=== PATIENT | male | born 1950 | race Caucasian/White ===

== ENCOUNTER 2016-07-15 11:10 | Emergency (ER) | payer OTHER ==
[2016-07-15 11:20] VITALS: TEMP 97.3
--- NOTE | 2016-07-15 11:45 | CPEKG ---
Heart Rate: 68 RR Interval: 882 P-R Interval: 172 QRSD Interval: 82 QT Interval: 368 QTC Interval: 392 P [place]: 61 QRS [place]: -22 T Wave [place]: 41 EKG Severity - OTHERWISE NORMAL ECG - EKG Impression: SINUS RHYTHM EKG Impression: BORDERLINE LEFT AXIS DEVIATION Electronically Signed By: Helio Shaffer 16-Jul-2016 08:59:51
[2016-07-15] MEDS ORDERED: NS 1,000 ML IV ONE (12:02)
--- NOTE | 2016-07-15 12:06 | EDPHY ---
H & P Stated Complaint: r sided cp /sob weakness Time Seen by Provider: 07/15/16 11:53 HPI/ROS: CHIEF COMPLAINT: Lightheaded, weak, chest pain HISTORY OF PRESENT ILLNESS: The patient is a 66-year-old man with a history of multiple sclerosis, as well as a history of SVT status post ablation but no other cardiac disease. He comes to the emergency department complaining of feeling lightheaded, weak and having intermittent chest tightness on the right side of his chest over the last 4 days. He does have worsening pain with deep inspiration. He has been getting physical therapy on the right shoulder thought that maybe this was secondary to a muscle strain. He does have some leg pain and swelling at baseline but nothing unusual. Takes baclofen for pain as well as Zanaflex. He does feel slightly short of breath. REVIEW OF SYSTEMS: Constitutional: denies: chills, fever, recent illness, recent injury EENTM: denies: blurred vision, double vision, nose congestion Respiratory: See HPI Cardiac: See HPI, denies: irregular heart rate, lightheadedness, palpitations Gastrointestinal/Abdominal: denies: abdominal pain, diarrhea, nausea, vomiting, blood streaked stools Genitourinary: denies: dysuria, frequency, hematuria, pain Musculoskeletal: denies: joint pain, muscle pain Skin: denies: lesions, rash, jaundice, bruising Neurological: denies: headache, numbness, paresthesia, tingling, dizziness, weakness Hematologic/Lymphatic: denies: blood clots, easy bleeding, easy bruising Immunologic/allergic: denies: HIV/AIDS, transplant EXAM: GENERAL: lying in bed, alert, awake HEAD: Atraumatic, normocephalic. EYES: Pupils equal round and reactive to light, extraocular movements intact, sclera anicteric, conjunctiva are normal. ENT: TMs normal, nares patent, oropharynx clear without exudates. Moist mucous membranes. NECK: Normal range of motion, supple without lymphadenopathy or JVD. LUNGS: Breath sounds clear to auscultation bilaterally and equal. No wheezes rales or rhonchi. HEART: Regular rate and rhythm without murmurs, rubs or gallops. ABDOMEN: Soft, nontender, normoactive bowel sounds. No guarding, no rebound. No masses appreciated. BACK: No CVA tenderness, no spinal tenderness, step-offs or deformities EXTREMITIES: Spasticity, movement in all extremities NEUROLOGICAL: Cranial nerves II through XII grossly intact. Normal speech, normal gait. 5/5 strength, normal movement in all extremities, normal sensation PSYCH: Normal mood, normal affect. SKIN: Warm, dry, normal turgor, no visible rashes or lesions. Source: Patient Exam Limitations: No limitations - Personal History Current Tetanus/Diphtheria Vaccine: No - Medical/Surgical History Hx Asthma: No Hx Chronic Respiratory Disease: No Hx Diabetes: No Hx Cardiac Disease: No Hx Renal Disease: No Hx Cirrhosis: No Hx Alcoholism: No Hx HIV/AIDS: No Hx Splenectomy or Spleen Trauma: No Other PMH: PMH: Multiple sclerosis. lap hernia repair 1998.Lft testicle infection 1999, LYME DISEASE, ABLATION FOR SVT - Family History Significant Family History: No pertinent family hx - Social History Smoking Status: Never smoked Alcohol Use: Sober Drug Use: None Constitutional: Initial Vital Signs Temperature (C) 36.3 C 07/15/16 11:17 Heart Rate 77 07/15/16 11:17 Respiratory Rate 18 07/15/16 11:17 Blood Pressure 101/75 07/15/16 11:17 O2 Sat (%) 95 07/15/16 11:17 O2 Delivery Mode Room Air Allergies/Adverse Reactions: Sulfa (Sulfonamide Antibiotics) Allergy (Verified 07/15/16 11:16) Home Medications: Medication Instructions Recorded Amantadine HCl [Amantadine] 100 mg PO TID 06/13/14 Baclofen [Baclofen 20 mg (*)] 20 mg PO QID 06/13/14 Modafinil [Provigil 100 mg (*)] 100 mg PO DAILY@06/13/14 Modafinil [Provigil 200 mg] 200 mg PO DAILY 06/13/14 Oxybutynin Chloride Xl [Ditropan 10 mg PO DAILY 06/13/14 Xl 5mg (*)] Tizanidine HCl [Zanaflex] 4 mg PO HS 06/13/14 tiZANidine HCL [Zanaflex] 2 mg PO DAILY@06/13/14 Aspirin EC [Aspirin EC 325 mg (*)] 325 mg PO DAILY #0 tab 06/15/14 Acyclovir 07/15/16 Medical Decision Making - Diagnostics EKG Interpretation: An EKG obtained and was read and documented in trace view. Please see trace view for full reading and report. Sinus rhythm, no acute ischemic changes Imaging: X-ray: chest x-ray was obtained. I viewed the images myself on the PACS system. My interpretation of the images is: negative for acute disease . The radiologist interpretation is pending. ED Course/Re-evaluation: 12:55 p.m. the patient is feeling much better after IV hydration. He is tolerating p.o.. We will dip his urine. Otherwise his lab work is unremarkable. He is reassured by this. He suspects that this is primarily musculoskeletal discomfort and dehydration. He understands that we do not currently have a specific diagnosis. He feels comfortable going home. He declines further workup or testing. His chest discomfort has been ongoing for greater than 6 hours. 1:30 p.m. the patient's urinalysis is negative. He was able to get to his wheelchair and move around at baseline. He currently is asymptomatic and was able to leave the department in good spirits. Differential Diagnosis: Partial list of the Differential diagnosis considered include but were not limited to; chest pain, acute coronary disease, arrhythmia, pneumonia, electrolyte abnormality, dehydration, MS exacerbation and although unlikely based on the history and physical exam, I also considered head injury, sepsis. I discussed these differential diagnoses and the plan with the patient as well as the usual and expected course. The patient understands that the diagnosis is provisional and that in medicine we are not always correct and that further workup is often warranted. Usual and customary warnings were given. All of the patient's questions were answered. The patient was instructed to return to the emergency department should the symptoms at all worsen or return, otherwise to followup with the physician as we discussed. - Data Points Laboratory Results: Laboratory Results 07/15/16 11:45 07/15/16 11:45 07/15/16 07/15/16 07/15/16 11:45 11:45 11:45 WBC 5.25 10^3/uL 10^3/uL (3.80-9.50) RBC 5.32 10^6/uL 10^6/uL (4.40-6.38) Hgb 17.2 g/dL g/dL (13.7-17.5) Hct 51.3 % H % (40.0-51.0) MCV 96.4 fL fL (81.5-99.8) MCH 32.3 pg pg (27.9-34.1) MCHC 33.5 g/dL g/dL (32.4-36.7) RDW 13.4 % % (11.5-15.2) Plt Count 174 10^3/uL 10^3/uL (150-400) MPV 9.4 fL fL (8.7-11.7) Neut % (Auto) 54.9 % % (39.3-74.2) Lymph % (Auto) 26.3 % % (15.0-45.0) [place] % (Auto) 12.4 % % (4.5-13.0) Eos % (Auto) 5.0 % % (0.6-7.6) Baso % (Auto) 1.0 % % (0.3-1.7) Nucleat RBC Rel Count 0.0 % % (0.0-0.2) Absolute Neuts (auto) 2.89 10^3/uL 10^3/uL (1.70-6.50) Absolute Lymphs (auto) 1.38 10^3/uL 10^3/uL (1.00-3.00) Absolute Monos (auto) 0.65 10^3/uL 10^3/uL (0.30-0.80) Absolute Eos (auto) 0.26 10^3/uL 10^3/uL (0.03-0.40) Absolute Basos (auto) 0.05 10^3/uL 10^3/uL (0.02-0.10) Absolute Nucleated RBC 0.00 10^3/uL 10^3/uL (0-0.01) Immature Gran % 0.4 % % (0.0-1.1) Immature Gran # 0.02 10^3/uL 10^3/uL (0.00-0.10) PT 13.1 SEC SEC (12.0-15.0) INR 1.00 (0.83-1.16) APTT 26.8 SEC SEC (23.0-38.0) D-Dimer < 0.27 ug/mLFEU ug/mLFEU (0.00-0.50) Sodium 143 mEq/L mEq/L (134-144) Potassium 4.1 mEq/L mEq/L (3.5-5.2) Chloride 102 mEq/L mEq/L (97-110) Carbon Dioxide 30 mEq/l mEq/l (22-31) Anion Gap 11 mEq/L mEq/L (8-16) BUN 16 mg/dL mg/dL (7-23) Creatinine 0.7 mg/dL mg/dL (0.7-1.3) Estimated GFR > 60 Glucose 74 mg/dL mg/dL (70-100) Calcium 9.1 mg/dL mg/dL (8.5-10.4) Troponin I < 0.012 ng/mL ng/mL (0-0.034) Medications Given: Discontinued Medications Sodium Chloride (Ns) 1,000 mls @ 0 mls/hr IV ONCE ONE PRN Reason: Wide Open Stop: 07/15/16 12:03 Last Admin: 07/15/16 12:13 Dose: 1,000 mls Departure - Departure Disposition: Home, Routine, Self-Care Clinical Impression: Generalized weakness, Dehydration Condition: Fair Instructions: Dehydration (ED), Weakness (ED) Referrals: Kenyetta Garcia PA [Primary Care Provider] - As per Instructions
[2016-07-15 12:09] LABS: % IMMATURE GRANULYOCYTES 0.4 % (0.0-1.1); ABSOLUTE IMMATURE GRANULOCYTES 0.02 10^3/uL (0.00-0.10); ADD DIFF? NO; ADD MORPH? NO; ADD SCAN? NO; ATYPICAL LYMPHOCYTE FLAG 0 (0-99); FRAGMENT RBC FLAG 0 (0-99); HEMATOCRIT 51.3 % (40.0-51.0); HEMOGLOBIN 17.2 g/dL (13.7-17.5); LEFT SHIFT FLG 0 (0-99); LIPEMIA HEMOLYSIS FLAG 80 (0-99); MEAN CELL HEMOGLOBIN 32.3 pg (27.9-34.1); MEAN CELL HEMOGLOBIN CONCENTR. 33.5 g/dL (32.4-36.7); MEAN CELL VOLUME 96.4 fL (81.5-99.8); MEAN PLATELET VOLUME 9.4 fL (8.7-11.7); PLATELET CLUMPS FLAG 0 (0-99); PLATELET COUNT 174 10^3/uL (150-400); RED BLOOD CELL COUNT 5.32 10^6/uL (4.40-6.38); RED CELL DISTRIBUTION WIDTH 13.4 % (11.5-15.2)
[2016-07-15 12:21] LABS: ANION GAP 11 mEq/L (8-16); CALCIUM 9.1 mg/dL (8.5-10.4); CARBON DIOXIDE 30 mEq/l (22-31); CHLORIDE 102 mEq/L (97-110); CREATININE 0.7 mg/dL (0.7-1.3); GLOMERULAR FILTRATION RATE > 60; GLUCOSE 74 mg/dL (70-100); POTASSIUM 4.1 mEq/L (3.5-5.2); SODIUM 143 mEq/L (134-144)
[2016-07-15 12:31] LABS: TROPONIN I < 0.012 ng/mL (0-0.034)
[2016-07-15 12:34] LABS: PROTIME(PATIENT) 13.1 SEC (12.0-15.0)
[2016-07-15 12:35] LABS: APTT 26.8 SEC (23.0-38.0)
[2016-07-15 12:45] VITALS: RESP 16
[2016-07-15 13:10] VITALS: BP 132/83; PULSE 65; O2SAT 95
== END 2016-07-15 13:20 | disposition home or self-care (01) ==
DX: R53.1 Weakness (principal); E86.0 Dehydration; Z79.82 Long term (current) use of aspirin

== ENCOUNTER → 2016-08-05 | Outpatient (CLI) | payer OTHER | LOC: FIMAGING 06:54 | PROVIDERS: ATTEND Specialist | DX: G35 Multiple sclerosis (principal); M51.36 Other intervertebral disc degeneration, lumbar region ==

== ENCOUNTER → 2016-08-24 | Outpatient (CLI) | payer OTHER | LOC: FIMAGING 13:13 | PROVIDERS: ATTEND Registered Nurse | DX: R05 Cough (principal); R91.8 Other nonspecific abnormal finding of lung field; J98.6 Disorders of diaphragm; Z87.81 Personal history of (healed) traumatic fracture ==

== ENCOUNTER 2016-11-14 23:09 | Emergency (ER) | payer OTHER ==
[2016-11-15 00:42] LABS: COLOR PALE YELLOW; LEUKOCYTE ESTERASE,URINE TRACE (NEGATIVE); NITRITE,URINE NEGATIVE (NEGATIVE)
[2016-11-15 00:47] LABS: BACTERIA TRACE /hpf (NONE SEEN)
[2016-11-15 00:48] LABS: RBC,URINE NONE SEEN /hpf (0-3)
[2016-11-15] MEDS ORDERED: NITROFURANTOIN 100MG PREPACK#2 BTL TAKEHOME ONE (00:59)
--- NOTE | 2016-11-15 01:00 | EDPHY ---
H & P Stated Complaint: c/o frequency/cloudy urine today, infusion of immune suppressive med yest Time Seen by Provider: 11/15/16 00:01 HPI/ROS: Chief Complaint: Cloudy urine, possible UTI HPI: 66-year-old male with a history of MS who self caths homes presenting with concerns for possible urinary tract infection. Patient self caths in those noted cloudy urine today. Denies any fevers or chills. No nausea or vomiting. Some mild lower pelvic discomfort. Has a history of urinary tract infections in the past. ROS: 10 point Review of Systems is negative except as noted in the HPI. PMH: MS Social History: No smoking Family History: non-contributory Physical Exam: Gen: Awake, Alert, No Distress HEENT: Nose: no rhinorrhea Eyes: PERRLA, EOMI Mouth: Moist mucosa Neck: Supple, no JVD Chest: nontender, lungs clear to auscultation Heart: S1, S2 normal, no murmur Abd: Soft, non-tender, no guarding Back: no CVA tenderness, no midline tenderness Ext: no edema, non-tender Skin: no rash Neuro: CN II-XII intact, Sensation grossly intact, Strength 5/5 in bilateral upper and lower extremities - Medical/Surgical History Hx Asthma: No Hx Chronic Respiratory Disease: No Hx Diabetes: No Hx Cardiac Disease: No Hx Renal Disease: No Hx Cirrhosis: No Hx Alcoholism: No Hx HIV/AIDS: No Hx Splenectomy or Spleen Trauma: No Other PMH: PMH: Multiple sclerosis. lap hernia repair 1998.Lft testicle infection 1999, LYME DISEASE, ABLATION FOR SVT, stem cell tx - Social History Smoking Status: Never smoked Constitutional: Initial Vital Signs Temperature (C) 36.7 C 11/14/16 23:14 Heart Rate 87 11/14/16 23:14 Respiratory Rate 18 11/14/16 23:14 Blood Pressure 151/96 H 11/14/16 23:14 O2 Sat (%) 93 11/14/16 23:14 O2 Delivery Mode Room Air Allergies/Adverse Reactions: Sulfa (Sulfonamide Antibiotics) Allergy (Verified 11/14/16 23:18) Home Medications: Medication Instructions Recorded Amantadine HCl [Amantadine] 100 mg PO TID 06/13/14 Baclofen [Baclofen 20 mg (*)] 20 mg PO QID 06/13/14 Modafinil [Provigil 200 mg] 200 mg PO DAILY 06/13/14 Oxybutynin Chloride Xl [Ditropan 10 mg PO DAILY 06/13/14 Xl 5mg (*)] Tizanidine HCl [Zanaflex] 4 mg PO HS 06/13/14 tiZANidine HCL [Zanaflex] 2 mg PO DAILY@12 06/13/14 Acyclovir 07/15/16 Nitrofurantoin Monohyd/M-Cryst 100 mg PO BID #10 capsule 11/15/16 [Macrobid 100 mg Capsule] Medical Decision Making ED Course/Re-evaluation: Urinalysis consistent with UTI. I had ordered Macrobid. Urine cultures have been sent. He will follow up with culture results in 2 days with primary care physician. He will return for any concerns. - Data Points Laboratory Results: 11/15/16 00:30 Urine Color PALE YELLOW Urine Appearance CLEAR Urine pH 5.0 (5.0-7.5) Ur Specific [place] 1.006 (1.002-1.030) Urine Protein NEGATIVE (NEGATIVE) Urine Ketones NEGATIVE (NEGATIVE) Urine Blood NEGATIVE (NEGATIVE) Urine Nitrate NEGATIVE (NEGATIVE) Urine Bilirubin NEGATIVE (NEGATIVE) Urine Urobilinogen NEGATIVE EU EU (0.2-1.0) Ur Leukocyte Esterase TRACE H (NEGATIVE) Urine RBC NONE SEEN /hpf /hpf (0-3) Urine WBC 10-15 /hpf H /hpf (0-3) Ur Epithelial Cells TRACE /lpf /lpf (NONE-1+) Urine Bacteria TRACE /hpf H /hpf (NONE SEEN) Urine Glucose NEGATIVE (NEGATIVE) Medications Given: Discontinued Medications Nitrofurantoin (Macrobid 100mg Prepack#2) 1 btl TAKEHOME EDNOW ONE PRN Reason: Protocol Stop: 11/15/16 01:00 Last Admin: 11/15/16 01:09 Dose: 1 btl Departure - Departure Disposition: Home, Routine, Self-Care Clinical Impression: Urinary tract infection Condition: Good Instructions: Nitrofurantoin Combination (By mouth), Urinary Tract Infection in Men (ED) Additional Instructions: Follow up with primary care physician in 2-3 days to check your urine culture results. Return emergency depart for increasing fevers or chills, increasing pain, uncontrolled nausea vomiting, or any other concerns. Please take the full course of antibiotics. Referrals: Kenyetta Garcia PA [Primary Care Provider] - As per Instructions Prescriptions: Nitrofurantoin Monohyd/M-Cryst [Macrobid 100 mg Capsule] 100 mg PO BID #10 capsule
[2016-11-15 01:12] VITALS: BP 115/87; PULSE 81; RESP 16; TEMP 97.9; O2SAT 96
== END 2016-11-15 01:12 | disposition home or self-care (01) ==
DX: N39.0 Urinary tract infection, site not specified (principal); B96.89 Other specified bacterial agents as the cause of diseases classified elsewhere

== ENCOUNTER 2017-03-17 23:29 | Emergency (ER) | payer OTHER ==
[2017-03-17 23:38] VITALS: TEMP 98.1
[2017-03-17] MEDS ORDERED: NS 1,000 ML IV ONE (23:39)
[2017-03-17 23:47] LABS: % IMMATURE GRANULYOCYTES 0.4 % (0.0-1.1); ABSOLUTE IMMATURE GRANULOCYTES 0.05 10^3/uL (0.00-0.10); ADD DIFF? NO; ADD MORPH? NO; ADD SCAN? NO; ATYPICAL LYMPHOCYTE FLAG 0 (0-99); FRAGMENT RBC FLAG 0 (0-99); HEMATOCRIT 46.3 % (40.0-51.0); HEMOGLOBIN 16.7 g/dL (13.7-17.5); LEFT SHIFT FLG 0 (0-99); LIPEMIA HEMOLYSIS FLAG 90 (0-99); MEAN CELL HEMOGLOBIN 33.9 pg (27.9-34.1); MEAN CELL HEMOGLOBIN CONCENTR. 36.1 g/dL (32.4-36.7); MEAN CELL VOLUME 93.9 fL (81.5-99.8); MEAN PLATELET VOLUME 9.3 fL (8.7-11.7); PLATELET CLUMPS FLAG 10 (0-99); PLATELET COUNT 171 10^3/uL (150-400); RED BLOOD CELL COUNT 4.93 10^6/uL (4.40-6.38); RED CELL DISTRIBUTION WIDTH 13.7 % (11.5-15.2)
--- NOTE | 2017-03-17 23:55 | CPEKG ---
Heart Rate: 99 RR Interval: 606 P-R Interval: 168 QRSD Interval: 78 QT Interval: 324 QTC Interval: 416 P [place]: 43 QRS [place]: -23 T Wave [place]: 35 EKG Severity - OTHERWISE NORMAL ECG - EKG Impression: SINUS RHYTHM EKG Impression: BORDERLINE LEFT AXIS DEVIATION Electronically Signed By: Remedios Persaud 18-Mar-2017 06:42:22
[2017-03-18 00:04] LABS: ANION GAP 12 mEq/L (8-16); CARBON DIOXIDE 25 mEq/l (22-31); CHLORIDE 106 mEq/L (97-110); CREATININE 0.8 mg/dL (0.7-1.3); GLOMERULAR FILTRATION RATE > 60; GLUCOSE 125 mg/dL (70-100); POTASSIUM 4.1 mEq/L (3.5-5.2); SODIUM 143 mEq/L (134-144)
[2017-03-18 00:15] LABS: TROPONIN I < 0.012 ng/mL (0.000-0.034)
[2017-03-18 00:30] VITALS: RESP 16
--- NOTE | 2017-03-18 00:54 | EDPHY ---
H & P Stated Complaint: short period of sob/weakness, has since resolved Time Seen by Provider: 03/17/17 23:32 HPI/ROS: HPI The patient presents with an episode of shortness of breath and weakness which has now resolved, he is brought in by ambulance. He says today he does not think he drink enough water then went out to dinner and ate a salty meal. He was in bed and felt that he could not catch his breath and felt generally tired and diffusely weak. He noticed that he had a dry mouth. He checked his blood pressure and it was 90/50 which is low for him. He called 911. He was able to walk according to the paramedics, glucose was checked and was 137. Blood pressure improved to 136/90 when he ambulated. He has recently finished treatment for urinary tract infection. He did take a dose of ciprofloxacin today. He does self cath. He denies any chest pain, vomiting,. REVIEW OF SYSTEMS Constitutional: No fever, no chills. Eyes: No discharge. ENT: No sore throat. Cardiovascular: No chest pain, no palpitations. Respiratory: No cough, positive for shortness of breath. Gastrointestinal: No abdominal pain, no vomiting. Genitourinary: No hematuria. Musculoskeletal: No back pain. Skin: No rashes. Neurological: No headache. PMHx: Multiple sclerosis, self caths, has had a stem cell transplant Soc Hx: Lives at home with his PHYSICAL General Appearance: Alert, no distress Eyes: Pupils equal and round no pallor or injection ENT, Mouth: Mucous membranes moist Respiratory: There are no retractions, lungs are clear to auscultation Cardiovascular: Regular rate and rhythm Gastrointestinal: Abdomen is soft and non-tender, no masses, bowel sounds normal Neurological: A&O, moves all extremities Skin: Warm and dry, no rashes Musculoskeletal: Neck is supple non tender Extremities: Bilateral edema of both of his feet Psychiatric: Patient is oriented X 3, there is no agitation Source: Patient, EMS, Old records - Medical/Surgical History Hx Asthma: No Hx Chronic Respiratory Disease: No Hx Diabetes: No Hx Cardiac Disease: No Hx Renal Disease: No Hx Cirrhosis: No Hx Alcoholism: No Hx HIV/AIDS: No Hx Splenectomy or Spleen Trauma: No Other PMH: PMH: Multiple sclerosis. lap hernia repair 1998.Lft testicle infection 1999, LYME DISEASE, ABLATION FOR SVT, stem cell tx - Social History Smoking Status: Never smoked Constitutional: Initial Vital Signs Temperature (C) 36.7 C 03/17/17 23:34 Heart Rate 97 03/17/17 23:34 Respiratory Rate 22 H 03/17/17 23:34 Blood Pressure 140/86 H 03/17/17 23:34 O2 Sat (%) 94 03/17/17 23:34 O2 Delivery Mode Room Air Allergies/Adverse Reactions: Sulfa (Sulfonamide Antibiotics) Allergy (Verified 03/17/17 23:37) Home Medications: Medication Instructions Recorded Amantadine HCl [Amantadine] 100 mg PO TID 06/13/14 Baclofen [Baclofen 20 mg (*)] 20 mg PO QID 06/13/14 Modafinil [Provigil 200 mg] 200 mg PO DAILY 06/13/14 Oxybutynin Chloride Xl [Ditropan 10 mg PO DAILY 06/13/14 Xl 5mg (*)] Tizanidine HCl [Zanaflex] 4 mg PO HS 06/13/14 tiZANidine HCL [Zanaflex] 2 mg PO DAILY@12 06/13/14 Acyclovir 07/15/16 Nitrofurantoin Monohyd/M-Cryst 100 mg PO BID #10 capsule 11/15/16 [Macrobid 100 mg Capsule] Medical Decision Making - Diagnostics EKG Interpretation: EKG: Complete interpretation has been separately recorded in the [facility] archive. Summary impression: Normal sinus rhythm Imaging Results: Chest x-ray two view shows poor inspiration, no infiltrate, no pneumothorax, interpreted by me, radiology interpretation pending. Imaging: I viewed and interpreted images myself Differential Diagnosis: This is a 66-year-old man with multiple sclerosis who presents with an episode of shortness of breath and diffuse weakness which is now entirely resolved. He had hypotension with this which has also resolved with no treatments. He believes he is dehydrated. On exam, he has a normal blood pressure and is mildly tachycardic in the low 100s. He does not have any focal neurologic deficits. His lungs sound clear. Differential diagnosis includes hypovolemia, pneumonia, pneumothorax, infection such as urinary tract infection. In the emergency department, patient was given a fluid bolus with no ongoing symptoms. He continued to feel well. His blood pressures were normal. He had normal laboratory testing and normal chest x-ray. He will be discharged home. Urine culture was sent I will not presumptively start him on antibiotics at this time. - Data Points Laboratory Results: Laboratory Results 03/17/17 23:30 03/17/17 23:30 03/18/17 03/17/17 03/17/17 00:38 23:30 23:30 WBC 11.62 10^3/uL H 10^3/uL (3.80-9.50) RBC 4.93 10^6/uL 10^6/uL (4.40-6.38) Hgb 16.7 g/dL g/dL (13.7-17.5) Hct 46.3 % % (40.0-51.0) MCV 93.9 fL fL (81.5-99.8) MCH 33.9 pg pg (27.9-34.1) MCHC 36.1 g/dL g/dL (32.4-36.7) RDW 13.7 % % (11.5-15.2) Plt Count 171 10^3/uL 10^3/uL (150-400) MPV 9.3 fL fL (8.7-11.7) Neut % (Auto) 81.3 % H % (39.3-74.2) Lymph % (Auto) 9.4 % L % (15.0-45.0) [place] % (Auto) 7.1 % % (4.5-13.0) Eos % (Auto) 1.5 % % (0.6-7.6) Baso % (Auto) 0.3 % % (0.3-1.7) Nucleat RBC Rel Count 0.0 % % (0.0-0.2) Absolute Neuts (auto) 9.43 10^3/uL H 10^3/uL (1.70-6.50) Absolute Lymphs (auto) 1.09 10^3/uL 10^3/uL (1.00-3.00) Absolute Monos (auto) 0.83 10^3/uL H 10^3/uL (0.30-0.80) Absolute Eos (auto) 0.18 10^3/uL 10^3/uL (0.03-0.40) Absolute Basos (auto) 0.04 10^3/uL 10^3/uL (0.02-0.10) Absolute Nucleated RBC 0.00 10^3/uL 10^3/uL (0-0.01) Immature Gran % 0.4 % % (0.0-1.1) Immature Gran # 0.05 10^3/uL 10^3/uL (0.00-0.10) Sodium 143 mEq/L mEq/L (134-144) Potassium 4.1 mEq/L mEq/L (3.5-5.2) Chloride 106 mEq/L mEq/L (97-110) Carbon Dioxide 25 mEq/l mEq/l (22-31) Anion Gap 12 mEq/L mEq/L (8-16) BUN 15 mg/dL mg/dL (7-23) Creatinine 0.8 mg/dL mg/dL (0.7-1.3) Estimated GFR > 60 Glucose 125 mg/dL H mg/dL (70-100) Calcium 9.0 mg/dL mg/dL (8.5-10.4) Troponin I < 0.012 ng/mL ng/mL (0.000-0.034) Urine Color YELLOW Urine Appearance CLEAR Urine pH 6.0 (5.0-7.5) Ur Specific [place] 1.021 (1.002-1.030) Urine Protein NEGATIVE (NEGATIVE) Urine Ketones NEGATIVE (NEGATIVE) Urine Blood NEGATIVE (NEGATIVE) Urine Nitrate NEGATIVE (NEGATIVE) Urine Bilirubin NEGATIVE (NEGATIVE) Urine Urobilinogen NEGATIVE EU EU (0.2-1.0) Ur Leukocyte Esterase TRACE H (NEGATIVE) Urine RBC 3-5 /hpf H /hpf (0-3) Urine WBC 10-15 /hpf H /hpf (0-3) Ur Epithelial Cells TRACE /lpf /lpf (NONE-1+) Urine Mucus 1+ /lpf /lpf (NONE-1+) Urine Glucose NEGATIVE (NEGATIVE) Medications Given: Discontinued Medications Sodium Chloride (Ns) 1,000 mls @ 0 mls/hr IV ONCE ONE; Wide Open PRN Reason: Protocol Stop: 03/17/17 23:40 Last Admin: 03/17/17 23:45 Dose: 1,000 mls Departure - Departure Disposition: Home, Routine, Self-Care Clinical Impression: Weakness, Hypotension Condition: Good Instructions: Dehydration (ED) Additional Instructions: I suspect you were dehydrated tonight and that is what has caused her symptoms. I would like you to check your blood pressure more frequently tomorrow to make sure your having normal readings. I would like you to follow up with your primary care doctor in 1-2 days. We did notice a small amount of bacteria in her urine because of this we have sent a urine culture test. If this returns positive, we will call you at home. Please continue to take her ciprofloxacin. Referrals: [facility] [Provider Group] - As per Instructions
[2017-03-18 00:57] LABS: COLOR YELLOW; LEUKOCYTE ESTERASE,URINE TRACE (NEGATIVE); NITRITE,URINE NEGATIVE (NEGATIVE)
[2017-03-18 01:05] LABS: MUCUS 1+ /lpf (NONE-1+)
[2017-03-18 02:04] VITALS: BP 134/65; PULSE 89; O2SAT 95
== END 2017-03-18 02:00 | disposition home or self-care (01) ==
LOC: EDUNIT#
DX: R53.1 Weakness (principal); I95.9 Hypotension, unspecified; E86.9 Volume depletion, unspecified

== ENCOUNTER 2017-07-07 12:35 | Observation (INO) | payer OTHER ==
[2017-07-07 12:48] LABS: PLATELET COUNT 143 10^3/uL (150-400)
--- NOTE | 2017-07-07 12:49 | EDPHY ---
HPI/HX/ROS/PE/MDM Narrative: CHIEF COMPLAINT: Fever, weakness. HPI: This patient is a 67 year old male with history of multiple sclerosis presenting with fever and weakness. Yesterday, he had sudden onset high fever and wheezing with associated generalized body aches. This morning, symptoms persisted with fever of 102.1. He took Tylenol for fever reduction and Mucinex for symptom relief, and went to his primary care provider at [place]. Providers referred him to the emergency department as he appeared very weak and needed to lie down due to near-syncope. His primary care providers were concerned for UTI. He generally places a self-catheter for urination. The patient endorses nausea. No vomiting or diarrhea. He has a mild cough. No chest pain, shortness of breath, diarrhea, or other associated symptoms. Of note, the patient was recently placed on a diuretic medication for pedal edema. He did not take this medication today. REVIEW OF SYSTEMS: Aside from elements discussed in the HPI, a comprehensive 10-point review of systems was reviewed and is negative. PMH: Multiple sclerosis. Laparoscopic hernia repair. Lyme disease. SVT s/p ablation. SOCIAL HISTORY: . at bedside. Lives in [place]. Works for [employer]. PHYSICAL EXAM: General:Patient is alert, in no acute distress. ENT:Eyes are normal to inspection. ENT inspection normal. Neck: Normal inspection. Full range of motion. Respiratory:No respiratory distress. Breath sounds normal bilaterally. Cardiovascular: Regular rate and rhythm. Strong peripheral pulses. Normal cap refill. Abdomen:The abdomen is nontender to palpation. There are no peritoneal signs. There are normal bowel sounds. Back: Normal to inspection. No tenderness to palpation. Skin: Normal color. No rash. Warm and dry. Extremities: Normal appearance. Full range of motion. Neuro: Alert and oriented x3. ED Course: 67 y/o male presents with fever and weakness onset yesterday. Plan for labs including CBC, chemistries, flu swab, lactic acid, blood cultures, UA. 14:15 UA positive for UTI. WBC elevated at 16,000. Flu swab negative. Chest x-ray negative for acute processes. No evidence of pneumonia. Reassessed patient. Offered admission for MS exacerbation, UTI. Patient declines and would prefer to be discharge home on antibiotics. His , who is his primary caregiver, recently underwent back surgery and is concerned because she will not be able to lift him or provide adequate assistance. Plan to consult with case management. Case management has spoken with the patient and his . The patient is comfortable with admission for appropriate care. 14:41 Spoke with hospitalist service. Dr. Dudley accepts admission for UTI and MS exacerbation. - Data Points Imaging Results: Imaging Impressions Chest X-Ray 07/07/17 12:42 Impression: 1. No evidence of acute pneumonia 2. Lower lobe atelectasis secondary to elevated right hemidiaphragm. 3. Chronic airways disease. Superimposed infectious bronchiolitis not excluded. Imaging: I viewed and interpreted images myself Laboratory Results: Laboratory Results 07/07/17 12:40 07/07/17 12:40 07/07/17 07/07/17 07/07/17 13:35 13:09 12:41 WBC RBC Hgb Hct MCV MCH MCHC RDW Plt Count MPV Neut % (Auto) Lymph % (Auto) [place] % (Auto) Eos % (Auto) Baso % (Auto) Nucleat RBC Rel Count Absolute Neuts (auto) Absolute Lymphs (auto) Absolute Monos (auto) Absolute Eos (auto) Absolute Basos (auto) Absolute Nucleated RBC Immature Gran % Immature Gran # VBG Lactic Acid 1.4 mmol/L mmol/L (0.7-2.1) Sodium Potassium Chloride Carbon Dioxide Anion Gap BUN Creatinine Estimated GFR Glucose Calcium Urine Color YELLOW Urine Appearance HAZY Urine pH 5.0 (5.0-7.5) Ur Specific [place] 1.026 (1.002-1.030) Urine Protein 1+ H (NEGATIVE) Urine Ketones TRACE H (NEGATIVE) Urine Blood NEGATIVE (NEGATIVE) Urine Nitrate NEGATIVE (NEGATIVE) Urine Bilirubin NEGATIVE (NEGATIVE) Urine Urobilinogen 2.0 EU H EU (0.2-1.0) Ur Leukocyte Esterase NEGATIVE (NEGATIVE) Urine RBC NONE SEEN /hpf /hpf (0-3) Urine WBC 10-15 /hpf H /hpf (0-3) Ur Epithelial Cells TRACE /lpf /lpf (NONE-1+) Hyaline Casts 1-5 /lpf /lpf (0-1) Urine Mucus 2+ /lpf H /lpf (NONE-1+) Urine Glucose NEGATIVE (NEGATIVE) Nasal Influenza A PCR NEGATIVE FOR FLU A (NEGATIVE) Nasal Influenza B PCR NEGATIVE FOR FLU B (NEGATIVE) 07/07/17 07/07/17 12:40 12:40 WBC 15.88 10^3/uL H 10^3/uL (3.80-9.50) RBC 5.61 10^6/uL 10^6/uL (4.40-6.38) Hgb 18.5 g/dL H g/dL (13.7-17.5) Hct 53.5 % H % (40.0-51.0) MCV 95.4 fL fL (81.5-99.8) MCH 33.0 pg pg (27.9-34.1) MCHC 34.6 g/dL g/dL (32.4-36.7) RDW 14.3 % % (11.5-15.2) Plt Count 143 10^3/uL L 10^3/uL (150-400) MPV 9.2 fL fL (8.7-11.7) Neut % (Auto) 84.2 % H % (39.3-74.2) Lymph % (Auto) 5.4 % L % (15.0-45.0) [place] % (Auto) 9.3 % % (4.5-13.0) Eos % (Auto) 0.0 % L % (0.6-7.6) Baso % (Auto) 0.3 % % (0.3-1.7) Nucleat RBC Rel Count 0.0 % % (0.0-0.2) Absolute Neuts (auto) 13.38 10^3/uL H 10^3/uL (1.70-6.50) Absolute Lymphs (auto) 0.85 10^3/uL L 10^3/uL (1.00-3.00) Absolute Monos (auto) 1.48 10^3/uL H 10^3/uL (0.30-0.80) Absolute Eos (auto) 0.00 10^3/uL L 10^3/uL (0.03-0.40) Absolute Basos (auto) 0.04 10^3/uL 10^3/uL (0.02-0.10) Absolute Nucleated RBC 0.00 10^3/uL 10^3/uL (0-0.01) Immature Gran % 0.8 % % (0.0-1.1) Immature Gran # 0.13 10^3/uL H 10^3/uL (0.00-0.10) VBG Lactic Acid Sodium 138 mEq/L mEq/L (135-145) Potassium 4.3 mEq/L mEq/L (3.5-5.2) Chloride 102 mEq/L mEq/L (97-110) Carbon Dioxide 24 mEq/l mEq/l (22-31) Anion Gap 12 mEq/L mEq/L (8-16) BUN 17 mg/dL mg/dL (7-23) Creatinine 0.7 mg/dL mg/dL (0.7-1.3) Estimated GFR > 60 Glucose 124 mg/dL H mg/dL (70-100) Calcium 8.6 mg/dL mg/dL (8.5-10.4) Urine Color Urine Appearance Urine pH Ur Specific [place] Urine Protein Urine Ketones Urine Blood Urine Nitrate Urine Bilirubin Urine Urobilinogen Ur Leukocyte Esterase Urine RBC Urine WBC Ur Epithelial Cells Hyaline Casts Urine Mucus Urine Glucose Nasal Influenza A PCR Nasal Influenza B PCR Medications Given: Discontinued Medications Sodium Chloride (Ns) 1,000 mls @ 0 mls/hr IV ONCE ONE PRN Reason: Wide Open Stop: 07/07/17 12:55 Last Admin: 07/07/17 13:17 Dose: 1,000 mls Ceftriaxone Sodium/Dextrose (Rocephin 1 Gm (Premix)) 50 mls @ 100 mls/hr IV EDNOW ONE PRN Reason: Protocol Stop: 07/07/17 14:49 Last Admin: 07/07/17 14:23 Dose: 50 mls General Time Seen by Provider: 07/07/17 12:42 Initial Vital Signs: Initial Vital Signs Temperature (C) 37.2 C 07/07/17 12:40 Heart Rate 104 H 07/07/17 12:40 Respiratory Rate 16 07/07/17 12:40 Blood Pressure 153/100 H 07/07/17 12:40 O2 Sat (%) 90 L 07/07/17 12:40 O2 Delivery Mode Room Air Allergies/Adverse Reactions: Sulfa (Sulfonamide Antibiotics) Allergy (Verified 03/17/17 23:37) Home Medications: Medication Instructions Recorded Amantadine HCl [Amantadine] 100 mg PO TID 06/13/14 Baclofen [Baclofen 20 mg (*)] 30 mg PO QID 06/13/14 Modafinil [Provigil 200 mg] 200 mg PO DAILY 06/13/14 Oxybutynin Chloride Xl [Ditropan 10 mg PO DAILY 06/13/14 Xl 5mg (*)] Tizanidine HCl [Zanaflex] 4 mg PO HS 06/13/14 tiZANidine HCL [Zanaflex] 2 mg PO DAILY@12 06/13/14 Acyclovir [Zovirax 400 mg (*)] 400 mg PO BID 07/15/16 Albuterol [Proventil Inhaler HFA 1 - 2 puffs IH Q4H 07/07/17 (*)] Eszopiclone [Lunesta] 3 mg PO HS PRN 07/07/17 Furosemide [Lasix 40 MG (*)] 40 mg PO DAILY 07/07/17 Herbals/Supplements -Info Only 1 ea PO DAILY 07/07/17 Modafinil [Provigil] 100 mg PO DAILY@12 07/07/17 Potassium Cl [Klor-Con 20 meq (*)] 20 meq PO DAILY 07/07/17 Departure - Departure Disposition: [facility] Inpatient Acute Clinical Impression: Multiple sclerosis exacerbation UTI (urinary tract infection) Qualifiers: Urinary tract infection type: acute cystitis Hematuria presence: without hematuria Qualified Code(s): N30.00 - Acute cystitis without hematuria Condition: Fair Physician Review and Approval Statement: Portions of this note were transcribed by an ED scribe. I personally performed the history, physical exam, and medical decision making; and confirm the accuracy of the information in the transcribed note.
[2017-07-07] MEDS ORDERED: NS 1,000 ML IV ONE (12:54)
[2017-07-07] MEDS ORDERED: ALBUTEROL 3 ML DEYVIAL IH PRN (14:59)
[2017-07-07] MEDS ORDERED: OXYCODONE/APAP 5/325 TAB PO PRN (14:59)
[2017-07-07] MEDS ORDERED: ONDANSETRON 4 MG/2 ML VIAL IVP PRN (14:59)
[2017-07-07] MEDS ORDERED: ACETAMINOPHEN 325 MG TAB PO PRN (14:59)
[2017-07-07] MEDS ORDERED: ONDANSETRON DISINTEGRATING 4 MG TAB PO PRN (14:59)
[2017-07-07] MEDS ORDERED: ZOLPIDEM TARTRATE 5 MG TAB PO PRN (15:31)
[2017-07-07] MEDS: BACLOFEN 20 MG TAB PO SCH ×2 (15:55→21:29)
[2017-07-07] MEDS: AMANTADINE HCL 100 MG CAP PO SCH ×2 (15:55→21:29)
[2017-07-07] MEDS: NS 1,000 ML IV SCH (16:00)
--- NOTE | 2017-07-07 16:00 | ASMTCMCOM ---
CM Note CM Note Notes: Patient presents to ER with MS exacerbation accompanied by his . Patient reluctant for admission as he is feeling "okay" at present, but is also concerned about recurrance of symptoms. He tells me that in addition to his symptoms which brought him here today, he had a similar incident at work yesterday. He is concerned about his (recovering from recent surgery) and potential for her to hurt herself should he have more weakness, or falls at home. I spoke with patient and his re services and stressed that this was ideal for ongoing strenghthening, conditioning, but given the "acute" symptoms/exacerbation of his MS, this was unlikely to be of value without further evaluation, etc. Patient and his agree that admission at this time is preferred. CM will be available for any discharge needs/planning prn Date Signed: 07/07/2017 04:00 PM Electronically Signed By:Glenda Rawls RN
--- NOTE | 2017-07-07 16:11 | HOSPPROG ---
Hospitalist Progress Note Assessment/Plan: This is a 67 yo male with hx of MS x over a decade and Stem cell transplant w/i the last 2 years who has been having malasise, SOB, cough, weakness, and fever. He had a 102 fever yesterday. He had fever again today. He was weak. His urine was concentrated and he presented to the E.D. He denies any abd or suprapubic pain, he has not had urinary frequency, urine has not been foul smelling. His CXR does not show an infiltrate. He has leukocytosis. He denies any chest pain, focal weakness. He is weaker than usual but there it is not localized. PMHx: Asthma MS PSHx: Stem cell transplant Soc: live with FmHx: non contributory Objective: Vital Signs Temp Pulse Resp BP Pulse Ox 37.2 C 104 H 18 146/86 H 91 L 07/07/17 15:39 07/07/17 15:39 07/07/17 15:39 07/07/17 15:39 07/07/17 15:39 07/06/17 07/07/17 07/08/17 05:59 05:59 05:59 Intake Total 1000 Balance 1000 ICD10 Worksheet Patient Problems: Problems Problem Status Onset Multiple sclerosis exacerbation Acute UTI (urinary tract infection) Acute
--- NOTE | 2017-07-07 16:15 | PDGENHP ---
History and Physical - Chief Complaint fever - History of Present Illness This is a 67 yo male with hx of MS x over a decade and Stem cell transplant w/i the last 2 years who has been having malasise, SOB, cough, weakness, and fever. He had a 102 fever yesterday. He had fever again today. He was weak. His urine was concentrated and he presented to the E.D. He denies any abd or suprapubic pain, he has not had urinary frequency, urine has not been foul smelling. His CXR does not show an infiltrate. He has leukocytosis. He denies any chest pain, focal weakness. He is weaker than usual but there it is not localized. PMHx: Asthma MS PSHx: Stem cell transplant Soc: live with FmHx: non contributory History Information - Allergies/Home Medication List Allergies/Adverse Reactions: Sulfa (Sulfonamide Antibiotics) Allergy (Verified 03/17/17 23:37) Home Medications: Amantadine HCl [Amantadine] 100 mg PO TID 06/13/14 [Last Taken 07/07/17 09:00] Baclofen [Baclofen 20 mg (*)] 30 mg PO QID 06/13/14 [Last Taken 07/07/17 12:00] Modafinil [Provigil 200 mg] 200 mg PO DAILY 06/13/14 [Last Taken 07/07/17] Oxybutynin Chloride Xl [Ditropan Xl 5mg (*)] 10 mg PO DAILY 06/13/14 [Last Taken 07/07/17] Tizanidine HCl [Zanaflex] 4 mg PO HS 06/13/14 [Last Taken 07/06/17] tiZANidine HCL [Zanaflex] 2 mg PO DAILY@12 06/13/14 [Last Taken 07/06/17] Acyclovir [Zovirax 400 mg (*)] 400 mg PO BID 07/15/16 [Last Taken 07/07/17 09:00 ] Albuterol [Proventil Inhaler HFA (*)] 1 - 2 puffs IH Q4H 07/07/17 [Last Taken ] Eszopiclone [Lunesta] 3 mg PO HS PRN 07/07/17 [Last Taken 07/05/17] Furosemide [Lasix 40 MG (*)] 40 mg PO DAILY 07/07/17 [Last Taken 07/06/17] Herbals/Supplements -Info Only 1 ea PO DAILY 07/07/17 [Last Taken 07/07/17] Modafinil [Provigil] 100 mg PO DAILY@12 07/07/17 [Last Taken 07/06/17] Potassium Cl [Klor-Con 20 meq (*)] 20 meq PO DAILY 07/07/17 [Last Taken 07/06/17 ] I have personally reviewed and updated: medical history, social history - Social History Smoking Status: Never smoked Review of Systems Review of Systems: ROS: 10pt was reviewed & negative except for what was stated in HPI & below Physical Exam Physical Exam: Temp Pulse Resp BP Pulse Ox 37.2 C 104 H 18 146/86 H 91 L 07/07/17 15:39 07/07/17 15:39 07/07/17 15:39 07/07/17 15:39 07/07/17 15:39 Constitutional: no apparent distress, not in pain Eyes: PERRL, EOMI Ears, Nose, Mouth, Throat: dry mucous membranes Cardiovascular: regular rate and rhythym, edema (trace lower extremity) Respiratory: no respiratory distress, no rales or rhonchi, expiratory wheeze Gastrointestinal: normoactive bowel sounds, soft, non-tender abdomen Genitourinary: no bladder fullness Skin: warm Musculoskeletal: generalized weakness Neurologic: AAOx3 Psychiatric: interacting appropriately, not anxious, not encephalopathic Lymph, Heme, Immunologic: No petechiae Lab Data & Imaging Review 07/07/17 12:40 07/07/17 12:40 WBC 15.88 10^3/uL (3.80-9.50) H 07/07/17 12:40 RBC 5.61 10^6/uL (4.40-6.38) 07/07/17 12:40 Hgb 18.5 g/dL (13.7-17.5) H 07/07/17 12:40 Hct 53.5 % (40.0-51.0) H 07/07/17 12:40 MCV 95.4 fL (81.5-99.8) 07/07/17 12:40 MCH 33.0 pg (27.9-34.1) 07/07/17 12:40 MCHC 34.6 g/dL (32.4-36.7) 07/07/17 12:40 RDW 14.3 % (11.5-15.2) 07/07/17 12:40 Plt Count 143 10^3/uL (150-400) L 07/07/17 12:40 MPV 9.2 fL (8.7-11.7) 07/07/17 12:40 Neut % (Auto) 84.2 % (39.3-74.2) H 07/07/17 12:40 Lymph % (Auto) 5.4 % (15.0-45.0) L 07/07/17 12:40 [place] % (Auto) 9.3 % (4.5-13.0) 07/07/17 12:40 Eos % (Auto) 0.0 % (0.6-7.6) L 07/07/17 12:40 Baso % (Auto) 0.3 % (0.3-1.7) 07/07/17 12:40 Nucleat RBC Rel Count 0.0 % (0.0-0.2) 07/07/17 12:40 Absolute Neuts (auto) 13.38 10^3/uL (1.70-6.50) H 07/07/17 12:40 Absolute Lymphs (auto) 0.85 10^3/uL (1.00-3.00) L 07/07/17 12:40 Absolute Monos (auto) 1.48 10^3/uL (0.30-0.80) H 07/07/17 12:40 Absolute Eos (auto) 0.00 10^3/uL (0.03-0.40) L 07/07/17 12:40 Absolute Basos (auto) 0.04 10^3/uL (0.02-0.10) 07/07/17 12:40 Absolute Nucleated RBC 0.00 10^3/uL (0-0.01) 07/07/17 12:40 Immature Gran % 0.8 % (0.0-1.1) 07/07/17 12:40 Immature Gran # 0.13 10^3/uL (0.00-0.10) H 07/07/17 12:40 VBG Lactic Acid 1.4 mmol/L (0.7-2.1) 07/07/17 13:09 Sodium 138 mEq/L (135-145) 07/07/17 12:40 Potassium 4.3 mEq/L (3.5-5.2) 07/07/17 12:40 Chloride 102 mEq/L (97-110) 07/07/17 12:40 Carbon Dioxide 24 mEq/l (22-31) 07/07/17 12:40 Anion Gap 12 mEq/L (8-16) 07/07/17 12:40 BUN 17 mg/dL (7-23) 07/07/17 12:40 Creatinine 0.7 mg/dL (0.7-1.3) 07/07/17 12:40 Estimated GFR > 60 07/07/17 12:40 Glucose 124 mg/dL (70-100) H 07/07/17 12:40 Calcium 8.6 mg/dL (8.5-10.4) 07/07/17 12:40 Total Bilirubin 1.5 mg/dL (0.1-1.4) H 07/07/17 13:09 Conjugated Bilirubin 0.5 mg/dL (0.0-0.5) 07/07/17 13:09 Unconjugated Bilirubin 1.0 mg/dL (0.0-1.1) 07/07/17 13:09 AST 27 IU/L (17-59) 07/07/17 13:09 ALT 32 IU/L (21-72) 07/07/17 13:09 Alkaline Phosphatase 79 IU/L (38-126) 07/07/17 13:09 Total Protein 6.9 g/dL (6.3-8.2) 07/07/17 13:09 Albumin 4.3 g/dL (3.5-5.0) 07/07/17 13:09 Urine Color YELLOW 07/07/17 13:35 Urine Appearance HAZY 07/07/17 13:35 Urine pH 5.0 (5.0-7.5) 07/07/17 13:35 Ur Specific [place] 1.026 (1.002-1.030) 07/07/17 13:35 Urine Protein 1+ (NEGATIVE) H 07/07/17 13:35 Urine Ketones TRACE (NEGATIVE) H 07/07/17 13:35 Urine Blood NEGATIVE (NEGATIVE) 07/07/17 13:35 Urine Nitrate NEGATIVE (NEGATIVE) 07/07/17 13:35 Urine Bilirubin NEGATIVE (NEGATIVE) 07/07/17 13:35 Urine Urobilinogen 2.0 EU (0.2-1.0) H 07/07/17 13:35 Ur Leukocyte Esterase NEGATIVE (NEGATIVE) 07/07/17 13:35 Urine RBC NONE SEEN /hpf (0-3) 07/07/17 13:35 Urine WBC 10-15 /hpf (0-3) H 07/07/17 13:35 Ur Epithelial Cells TRACE /lpf (NONE-1+) 07/07/17 13:35 Hyaline Casts 1-5 /lpf (0-1) 07/07/17 13:35 Urine Mucus 2+ /lpf (NONE-1+) H 07/07/17 13:35 Urine Glucose NEGATIVE (NEGATIVE) 07/07/17 13:35 Nasal Influenza A PCR NEGATIVE FOR FLU A (NEGATIVE) 07/07/17 12:41 Nasal Influenza B PCR NEGATIVE FOR FLU B (NEGATIVE) 07/07/17 12:41 Assessment & Plan Assessment: #Acute Bronchitis #Fever #Dehydration #Leukocytosis #Generalized weakness #MS Plan: I do not see any e/o of UTI He was already given Rocephin. I will change to Azithromycin Start Prednisone Provide additional IVF Hold Lasix Schedule and PRN nebs PT/OT Check Resp Panel for etiology He does have generalized weakness worse than baseline but I expect this will improve with IVF and treatment of bronchitis. I will hold off on high dose steroids.
[2017-07-07] MEDS: predniSONE 20 MG TAB PO SCH (17:46)
[2017-07-07] MEDS: AZITHROMYCIN 250 MG TAB PO SCH (17:46)
[2017-07-07] MEDS: ALBUTEROL 3 ML DEYVIAL IH SCH (20:14)
[2017-07-07] MEDS: ACYCLOVIR 400 MG TAB PO SCH (21:29)
[2017-07-08 05:00] LABS: PLATELET COUNT 133 10^3/uL (150-400)
[2017-07-08] MEDS: NS 1,000 ML IV SCH (05:18)
[2017-07-08] MEDS: BACLOFEN 20 MG TAB PO SCH ×2 (05:18→13:15)
[2017-07-08] MEDS: ALBUTEROL 3 ML DEYVIAL IH SCH ×2 (05:21→12:02)
[2017-07-08] MEDS ORDERED: ENOXAPARIN 40 MG/0.4 ML SYR SC SCH (09:00)
[2017-07-08] MEDS ORDERED: MODAFINIL 100 MG TAB PO SCH ×2 (09:00→12:00)
[2017-07-08] MEDS ORDERED: OXYBUTYNIN 5 MG EXT REL TAB PO SCH (09:00)
--- NOTE | 2017-07-08 09:04 | HOSPPROG ---
Hospitalist Progress Note Assessment/Plan: This is a 67 yo male with hx of MS x over a decade and Stem cell transplant w/i the last 2 years who has been having malaise, SOB, cough, weakness, and fever. He had a 102 fever yesterday. He had fever again today. He was weak. His urine was concentrated and he presented to the E.D. He denies any abd or suprapubic pain, he has not had urinary frequency, urine has not been foul smelling. *hypotension -better now *tachycardia -resolved * bronchitis -started on azithromycin and prednisone -check for the influenza which is negative -procalcitonin is 0.25 -no infiltrate noted on chest xray -prelim blood cx shows no growth -no fevers *acute hypoxemia -resolved *dehydration -explained to the patient and his when he has a low blood pressure and is dehydrated not to take the lasix *leukocytosis *MS -patient self caths multiple times daily *general weakness -reviewed his care w PT and he is at his baselin Subjective: Patient feels well today, says he is back to his baseline. Objective: Vital Signs Temp Pulse Resp BP Pulse Ox 36.5 C 88 18 105/62 97 07/08/17 08:00 07/08/17 08:00 07/08/17 08:00 07/08/17 08:00 07/08/17 08:00 Laboratory Results 07/08/17 04:41 07/08/17 04:41 07/07/17 07/08/17 07/09/17 05:59 05:59 05:59 Intake Total 2250 Output Total 700 Balance 1550 - Physical Exam Constitutional: no apparent distress, appears nourished Eyes: PERRL Ears, Nose, Mouth, Throat: hearing normal Cardiovascular: regular rate and rhythym, edema (bilateral lower extremity) Respiratory: no respiratory distress, no rales or rhonchi Skin: warm Musculoskeletal: generalized weakness Neurologic: AAOx3 Psychiatric: interacting appropriately ICD10 Worksheet Patient Problems: Problems Problem Status Onset Multiple sclerosis exacerbation Acute UTI (urinary tract infection) Acute
[2017-07-08] MEDS: predniSONE 20 MG TAB PO SCH (10:33)
[2017-07-08] MEDS: AZITHROMYCIN 250 MG TAB PO SCH (10:34)
[2017-07-08] MEDS: ACYCLOVIR 400 MG TAB PO SCH (10:34)
[2017-07-08] MEDS: AMANTADINE HCL 100 MG CAP PO SCH (10:41)
--- NOTE | 2017-07-08 11:04 | PDIAF ---
- Diagnosis Diagnosis: bronchitis, hypotension, dehydration Code Status: Full Code - Medication Management Discharge Medications: Medications to Continue on Transfer Amantadine HCl [Amantadine] 100 mg PO TID 06/13/14 [Last Taken 07/07/17 09:00] Baclofen [Baclofen 20 mg (*)] 30 mg PO QID 06/13/14 [Last Taken 07/07/17 12:00] Modafinil [Provigil 200 mg] 200 mg PO DAILY 06/13/14 [Last Taken 07/07/17] Oxybutynin Chloride Xl [Ditropan Xl 5mg (*)] 10 mg PO DAILY 06/13/14 [Last Taken 07/07/17] Tizanidine HCl [Zanaflex] 4 mg PO HS 06/13/14 [Last Taken 07/06/17] tiZANidine HCL [Zanaflex] 2 mg PO DAILY@12 06/13/14 [Last Taken 07/06/17] Acyclovir [Zovirax 400 mg (*)] 400 mg PO BID 07/15/16 [Last Taken 07/07/17 09:00 ] Albuterol [Proventil Inhaler HFA (*)] 1 - 2 puffs IH Q4H 07/07/17 [Last Taken ] Eszopiclone [Lunesta] 3 mg PO HS PRN 07/07/17 [Last Taken 07/05/17] Furosemide [Lasix 40 MG (*)] 40 mg PO DAILY 07/07/17 [Last Taken 07/06/17] Herbals/Supplements -Info Only 1 ea PO DAILY 07/07/17 [Last Taken 07/07/17] Modafinil [Provigil] 100 mg PO DAILY@12 07/07/17 [Last Taken 07/06/17] Potassium Cl [Klor-Con 20 meq (*)] 20 meq PO DAILY 07/07/17 [Last Taken 07/06/17 ] Azithromycin [Zithromax] 500 mg PO DAILY #6 tab 07/08/17 [Last Taken Unknown] predniSONE 40 mg PO DAILY #10 tablet 07/08/17 [Last Taken Unknown] Discharge Medications: Refer to the Discharge Home Medication list for PRN reason. PICC Care - Routine: N/A - Orders Services needed: Home Care, Registered Nurse Home Care Face to Face: I certify that this patient was under my care and that I had the required [id number] encounter meeting the encounter requirements on the discharge day. My findings support the fact that the patient is homebound as defined in Home Care Face to Face Continued: CMS Chapter 7 Medicare Benefits Manual 30.1.1 , The condition of the patient is such that there exists a normal inability to leave home and consequently, leaving home would require a considerable and taxing effort. Diet Recommendation: no restrictions on diet Diet Texture: Regular Texture Diet Additional: check patient's blood pressure when home care visits. Recommending he hold his lasix if systolic is <110. - Follow Up Care Current Providers and Referrals: Kenyetta Garcia PA [Primary Care Provider] - As per Instructions
[2017-07-08 11:13] VITALS: BP 139/85
--- NOTE | 2017-07-08 11:27 | GDS ---
[f rep st] DISCHARGE SUMMARY DISCHARGE DIAGNOSIS: 1. Bronchitis. 2. Hypotension. 3. Tachycardia. 4. Acute hypoxemia. 5. Dehydration. 6. Leukocytosis. 7. Multiple sclerosis. 8. General weakness. HISTORY: Briefly, Mr. Marques is a 67-year-old male with history of MS over a decade and stem cell transplant within the last 2 years. He presented to the emergency room after having malaise, shortness of breath, cough, weakness and fever. He knows that he had 102 fever. His urine was concentrated. He denied any abdominal suprapubic pain. He was admitted. He had a procalcitonin checked which was 0.25. In addition, a chest x-ray did not show any infiltrate. Preliminary blood culture showed no growth. He is feeling markedly better. Has had no fevers while on the floor and is anxious to go home. HOSPITAL COURSE: 1. Bronchitis. He started treatment with azithromycin and will continue this, and prednisone. Will have him follow up with his primary care provider to make sure his blood cultures do not grow anything in the setting of a fever. 2. Hypotension, resolved. 3. Tachycardia, resolved. 4. Acute hypoxemia, resolved on room air at 94%. 5. Dehydration. He takes his Lasix daily due to lower extremity swelling. Explained to him if his blood pressure is lower or he is not eating or drinking well, to hold the Lasix. 6. Leukocytosis, better. 7. Multiple sclerosis, sees a doctor down in the [place] area. 8. General weakness. Reviewed his care with Physical Therapy and he is at his baseline. PENDING LABS: Final blood culture is pending and respiratory panel from last night is pending. DISCHARGE CONDITION: Stable. Blood pressure is 105/62, heart rate is 88, respiratory rate is 18, O2 saturation on room air are 96%, temperature is 36.5 Celsius. MEDICATIONS AT DISCHARGE: Please see the EMR. DISCHARGE INSTRUCTIONS: 1. To return to the ER if he develops any fever, chills, or shortness of breath. 2. His primary care provider to follow up with his respiratory panel and blood culture. /[id number]/MODL MTDD
--- NOTE | 2017-07-08 11:40 | ASMTCMCOM ---
CM Note CM Note Notes: Spoke w/[employer], would like pt to get home health RN to check BP and review of medications. Discussed with pt, gave homecare list, would like referral sent to [facility]. CM spoke with Sonia, no staff for homecare right now, will fax referrals to other agencies. DC Plan: Home Care/ RN Date Signed: 07/08/2017 11:39 AM Electronically Signed By:Ember Hagan RN
--- NOTE | 2017-07-08 12:23 | ASMTLACE ---
LACE Length of stay for Answers: 1 day current admission Acuity / Level of Answers: No Care: Did the patient have an inpatient admission? Comorbidities - select Answers: Other Notes: MS exacerbation all that apply # of Emergency department Answers: 1-2 visits in the last 6 months Score: 3 Date Signed: 07/08/2017 12:22 PM Electronically Signed By:Ember Hagan RN
== END 2017-07-08 13:49 | disposition home health service (06) ==
LOC: EDUNIT# → F3E 15:25
PROVIDERS: ADMIT Family Medicine; ATTEND Internal Medicine
DX: J20.9 Acute bronchitis, unspecified (principal); I95.9 Hypotension, unspecified; R00.0 Tachycardia, unspecified; E86.0 Dehydration; R09.02 Hypoxemia; D72.829 Elevated white blood cell count, unspecified; G35 Multiple sclerosis; R53.1 Weakness; J98.11 Atelectasis; Z94.84 Stem cells transplant status; Z88.2 Allergy status to sulfonamides
CPT/HCPCS: 71046; 96374; 97162; 97165; 99285; G0378; G8987; G8988; G8989; J0696; J1650; J7512; J7613

== ENCOUNTER 2017-07-11 00:38 | Emergency (ER) | payer OTHER ==
[2017-07-11 01:00] VITALS: RESP 16; TEMP 98.4
[2017-07-11] MEDS ORDERED: NS 1,000 ML IV ONE (01:00)
--- NOTE | 2017-07-11 01:05 | EDPHY ---
H & P Stated Complaint: General Time Seen by Provider: 07/11/17 00:42 HPI/ROS: HPI The patient presents with cramping which she is experiencing in his arms, legs, abdomen which began at about 5 or 6:00 p.m. Tonight after taking a dose of Lasix. He has been off of his Lasix which she takes for lower extremity edema for the last several days. He was just hospitalized a few days ago and this medication was taken out because of some hypotension he was experiencing. He is currently taking antibiotics and prednisone for presumed bronchitis. Today a home health care nurse came to his house and saw his lower extremity edema and encouraged him to take a dose of Lasix. Shortly after taking it he began to feel this cramping which is constant and achy throughout his body. This was also associated with tachycardia and elevated blood pressures. He says he is feeling quite anxious.. REVIEW OF SYSTEMS Constitutional: No fever, no chills. Eyes: No discharge. ENT: No sore throat. Cardiovascular: No chest pain, no palpitations. Respiratory: No cough, no shortness of breath. Gastrointestinal: No abdominal pain, no vomiting. Genitourinary: No hematuria. Musculoskeletal: No back pain. Skin: No rashes. Neurological: No headache. PMHx: Recent hospitalization from July 07 to July 09 for bronchitis, history of multiple sclerosis, history of SVT status post ablation Soc Hx: Housed with his PHYSICAL General Appearance: Alert, no distress Eyes: Pupils equal and round no pallor or injection ENT, Mouth: Mucous membranes moist Respiratory: There are no retractions, lungs are clear to auscultation Cardiovascular: Tachycardic rate and regular rhythm Gastrointestinal: Abdomen is soft and non-tender, no masses, bowel sounds normal Neurological: A&O, moves all extremities Skin: Warm and dry, no rashes Musculoskeletal: Neck is supple non tender Extremities: Lower extremities are contracted, there is 2+ edema on the dorsum of both of his feet Psychiatric: Patient is oriented X 3, there is no agitation Source: Patient Exam Limitations: No limitations - Personal History Current Tetanus/Diphtheria Vaccine: Yes - Medical/Surgical History Hx Asthma: No Hx Chronic Respiratory Disease: No Hx Diabetes: No Hx Cardiac Disease: No Hx Renal Disease: No Hx Cirrhosis: No Hx Alcoholism: No Hx HIV/AIDS: No Hx Splenectomy or Spleen Trauma: No Other PMH: PMH: Multiple sclerosis. lap hernia repair 1998.Lft testicle infection 1999, LYME DISEASE, ABLATION FOR SVT, stem cell tx - Social History Smoking Status: Never smoked Constitutional: Initial Vital Signs Temperature (C) 36.9 C 07/11/17 00:56 Heart Rate 123 H 07/11/17 00:56 Respiratory Rate 16 07/11/17 00:56 Blood Pressure 159/114 H 07/11/17 00:56 O2 Sat (%) 92 07/11/17 00:56 O2 Delivery Mode Room Air Allergies/Adverse Reactions: Sulfa (Sulfonamide Antibiotics) Allergy (Verified 07/11/17 01:02) Home Medications: Medication Instructions Recorded Amantadine HCl [Amantadine] 100 mg PO TID 06/13/14 Baclofen [Baclofen 20 mg (*)] 30 mg PO QID 06/13/14 Modafinil [Provigil 200 mg] 200 mg PO DAILY 06/13/14 Oxybutynin Chloride Xl [Ditropan 10 mg PO DAILY 06/13/14 Xl 5mg (*)] Tizanidine HCl [Zanaflex] 4 mg PO HS 06/13/14 tiZANidine HCL [Zanaflex] 2 mg PO DAILY@12 06/13/14 Acyclovir [Zovirax 400 mg (*)] 400 mg PO BID 07/15/16 Albuterol [Proventil Inhaler HFA 1 - 2 puffs IH Q4H 07/07/17 (*)] Eszopiclone [Lunesta] 3 mg PO HS PRN 07/07/17 Furosemide [Lasix 40 MG (*)] 40 mg PO DAILY 07/07/17 Herbals/Supplements -Info Only 1 ea PO DAILY 07/07/17 Modafinil [Provigil] 100 mg PO DAILY@12 07/07/17 Potassium Cl [Klor-Con 20 meq (*)] 20 meq PO DAILY 07/07/17 Azithromycin [Zithromax] 500 mg PO DAILY #6 tab 07/08/17 predniSONE 40 mg PO DAILY #10 tablet 07/08/17 Medical Decision Making - Diagnostics EKG Interpretation: EKG: Complete interpretation has been separately recorded in the [employer] archive. Summary impression: Sinus tachycardia Differential Diagnosis: This is a 67-year-old male with history of multiple sclerosis, lower extremity edema, recent admission for bronchitis now on prednisone and antibiotics who presents from home with palpitations, body cramping in the setting of taking a dose of Lasix which she has been off of for the last several days. Differential diagnosis includes dehydration, electrolyte disturbance, atrial fibrillation. In the emergency department, patient was given IV fluid with improvement in his tachycardia and symptoms in general. Labs were checked and did demonstrate normal electrolytes though elevated BUN to suggest dehydration. EKG showed a normal sinus tachycardia. He felt well enough to go home after about 2 hr here. He was able to drink fluids and his symptoms had resolved. I have advised him to hold his Lasix for the next several days and then follow up with his regular doctor. He is happy with this plan and was discharged with his . - Data Points Laboratory Results: Laboratory Results 07/11/17 01:22 07/11/17 01:22 07/11/17 07/11/17 01:22 01:22 WBC 9.44 10^3/uL 10^3/uL (3.80-9.50) RBC 5.57 10^6/uL 10^6/uL (4.40-6.38) Hgb 18.0 g/dL H g/dL (13.7-17.5) Hct 51.6 % H % (40.0-51.0) MCV 92.6 fL fL (81.5-99.8) MCH 32.3 pg pg (27.9-34.1) MCHC 34.9 g/dL g/dL (32.4-36.7) RDW 13.7 % % (11.5-15.2) Plt Count 256 10^3/uL D 10^3/uL (150-400) MPV 8.7 fL fL (8.7-11.7) Neut % (Auto) 74.6 % H % (39.3-74.2) Lymph % (Auto) 12.7 % L % (15.0-45.0) [place] % (Auto) 11.8 % % (4.5-13.0) Eos % (Auto) 0.4 % L % (0.6-7.6) Baso % (Auto) 0.2 % L % (0.3-1.7) Nucleat RBC Rel Count 0.0 % % (0.0-0.2) Absolute Neuts (auto) 7.04 10^3/uL H 10^3/uL (1.70-6.50) Absolute Lymphs (auto) 1.20 10^3/uL 10^3/uL (1.00-3.00) Absolute Monos (auto) 1.11 10^3/uL H 10^3/uL (0.30-0.80) Absolute Eos (auto) 0.04 10^3/uL 10^3/uL (0.03-0.40) Absolute Basos (auto) 0.02 10^3/uL 10^3/uL (0.02-0.10) Absolute Nucleated RBC 0.00 10^3/uL 10^3/uL (0-0.01) Immature Gran % 0.3 % % (0.0-1.1) Immature Gran # 0.03 10^3/uL 10^3/uL (0.00-0.10) Sodium 143 mEq/L mEq/L (135-145) Potassium 4.8 mEq/L mEq/L (3.5-5.2) Chloride 107 mEq/L mEq/L (97-110) Carbon Dioxide 22 mEq/l mEq/l (22-31) Anion Gap 14 mEq/L mEq/L (8-16) BUN 25 mg/dL H mg/dL (7-23) Creatinine 0.9 mg/dL mg/dL (0.7-1.3) Estimated GFR > 60 Glucose 111 mg/dL H mg/dL (70-100) Calcium 9.7 mg/dL D mg/dL (8.5-10.4) Total Bilirubin 0.7 mg/dL mg/dL (0.1-1.4) AST 37 IU/L IU/L (17-59) ALT 60 IU/L IU/L (21-72) Alkaline Phosphatase 79 IU/L IU/L (38-126) Total Protein 7.3 g/dL g/dL (6.3-8.2) Albumin 4.6 g/dL g/dL (3.5-5.0) Medications Given: Discontinued Medications Sodium Chloride (Ns) 1,000 mls @ 0 mls/hr IV EDNOW ONE; Wide Open PRN Reason: Protocol Stop: 04/01/18 01:01 Last Admin: 07/11/17 01:23 Dose: 1,000 mls Sodium Chloride (Ns) 500 mls @ 1,000 mls/hr IV EDNOW ONE PRN Reason: Protocol Stop: 07/11/17 02:53 Last Admin: 07/11/17 02:29 Dose: 500 mls Departure - Departure Disposition: Home, Routine, Self-Care Clinical Impression: Dehydration, Tachycardia Condition: Good Instructions: Dehydration (ED) Additional Instructions: Your blood test today showed that you were dehydrated, I suspect this is due in part to the Lasix you took earlier tonight. Please make sure to drink plenty of fluids over the next 24 hr. You should return to the emergency department if your worse in any way. Referrals: Kenyetta Garcia PA [Primary Care Provider] - As per Instructions
--- NOTE | 2017-07-11 01:19 | CPEKG ---
Heart Rate: 121 RR Interval: 496 P-R Interval: 156 QRSD Interval: 82 QT Interval: 296 QTC Interval: 420 P Narvon: 36 QRS Narvon: -23 T Wave Narvon: 40 EKG Severity - BORDERLINE ECG - EKG Impression: SINUS TACHYCARDIA EKG Impression: PROBABLE LEFT ATRIAL ABNORMALITY EKG Impression: BORDERLINE LEFT AXIS DEVIATION Electronically Signed By: Remedios Persaud 11-Jul-2017 05:59:43
[2017-07-11 01:35] VITALS: BP 140/92
[2017-07-11 01:51] LABS: PLATELET COUNT 256 10^3/uL (150-400)
[2017-07-11] MEDS ORDERED: NS 500 ML IV ONE (02:24)
[2017-07-11 02:51] VITALS: PULSE 103; O2SAT 94
== END 2017-07-11 03:38 | disposition home or self-care (01) ==
DX: R00.0 Tachycardia, unspecified (principal); E86.0 Dehydration; E86.9 Volume depletion, unspecified

== ENCOUNTER 2017-07-13 18:13 | Inpatient (IN) | payer OTHER ==
--- NOTE | 2017-07-13 18:11 | EDPHY ---
H & P Time Seen by Provider: 07/13/17 18:13 HPI/ROS: CHIEF COMPLAINT: Fever HISTORY OF PRESENT ILLNESS: Recent admission for UTI. Had positive urine culture was started on amoxicillin by [facility] primary care today. Presents with fever, and increasing weakness. Recent admission discharge 2017 for bronchitis and hypoxemia. Today is a fever. Feels worse. Increased weakness. Decreased ability to self cath. REVIEW OF SYSTEMS: Eye: no change in vision ENT: no sore throat Cardiac: no chest pain or syncope Pulmonary: Slightly increased cough, not short of breath Abdomen: no vomiting, diarrhea, abdominal pain Musculoskeletal: no back pain Skin: Slight redness of lower extremities Neuro: Mild headache Constitutional: Fever and chills : Usually can self cath but today has difficulty A comprehensive 10 point review of systems is otherwise negative aside from elements mentioned in the history of present illness. PAST MEDICAL HISTORY: Multiple sclerosis. Social history: Nonsmoker General Appearance: Alert and conversant, cooperative. Eyes: No scleral icterus. ENT, Mouth: Dry mucous membranes. Respiratory: Normal respiratory effort, breath sounds equal, lungs are clear to auscultation. No wheezing. Cardiovascular: Regular rate and rhythm. Gastrointestinal: Abdomen is soft and non tender. Neurological: Alert, able to follow commands with upper extremities, does not move lower extremities. Skin: Patient has a little bit of mottling of his lower extremities but he is not diaphoretic. Has some evidence of redness on his sacrum but no cellulitis or open ulcer. Musculoskeletal: No peripheral edema. Psychiatric: Not agitated. Emergency Department course/MDM: Patient is febrile. Plan for urine culture, blood cultures, chest x-ray and urinalysis and labs. Lactate screening for sepsis. IV fluids. Tylenol for fever. 2014: UA negative, chest x-ray shows bibasilar opacities per radiologist, mildly hypoxemic with 90% room air saturation, does have a cough. Plan to treat for pneumonia, respiratory panel, IV antibiotics. This would be the most likely source of his fever and leukocytosis at this time. Normal saline 2 L IV bolus, supplemental oxygen, cefepime 2 g IV with recent hospitalization. Cultures pending. Sepsis but not severe sepsis or septic shock. Constitutional: Initial Vital Signs Temperature (C) 38.2 C 07/13/17 18:23 Heart Rate 122 H 07/13/17 18:23 Respiratory Rate 20 04/03/18 18:23 Blood Pressure 170/104 H 07/13/17 18:23 O2 Sat (%) 90 L 07/13/17 18:23 O2 Delivery Mode Room Air Allergies/Adverse Reactions: Sulfa (Sulfonamide Antibiotics) Allergy (Verified 07/13/17 21:04) Other-Enter Comments Home Medications: Medication Instructions Recorded Amantadine HCl [Amantadine] 100 mg PO TID 06/13/14 Baclofen [Baclofen 20 mg (*)] 30 mg PO QID 06/13/14 Modafinil [Provigil 200 mg] 200 mg PO DAILY 06/13/14 Oxybutynin Chloride Xl [Ditropan 10 mg PO DAILY 06/13/14 Xl 5mg (*)] Tizanidine HCl [Zanaflex] 8 mg PO HS 06/13/14 tiZANidine HCL [Zanaflex] 4 mg PO DAILY@12 06/13/14 Acyclovir [Zovirax 400 mg (*)] 400 mg PO BID 07/15/16 Albuterol [Proventil Inhaler HFA 1 - 2 puffs IH Q4H 07/07/17 (*)] Eszopiclone [Lunesta] 3 mg PO HS PRN 07/07/17 Herbals/Supplements -Info Only 1 ea PO DAILY 07/07/17 Modafinil [Provigil] 100 mg PO DAILY@12 07/07/17 Amoxicillin Trihydrate [Amoxil 250 500 mg PO Q8 07/13/17 mg CAP (*)] predniSONE [predniSONE TAPER] 20 mg PO .EDIT DOSE INSTRUCT 07/13/17 Medical Decision Making - Diagnostics Imaging Results: Imaging Impressions Chest X-Ray 07/13/17 18:24 Impression: Low lung volumes and bibasilar airspace opacities which may represent atelectasis and/or pneumonia in the appropriate clinical setting. Imaging: Discussed imaging studies w/ crop grain or livestock farmer Radiologist, I viewed and interpreted images myself Differential Diagnosis: Differential for fever included but not limited to UTI, influenza, pneumonia, sepsis Consult/Admit Bed Type: [place] [id number] Critical Care Time: Critical care time spent by me, Dr. Campos, exclusively with the care of this patient was 30 minutes, exclusive of PA or REAL ESTATE MANAGER time and exclusive of separate procedures. The organ system at risk was infectious and I ordered IV antibiotics, multiple diagnostics, supplemental oxygen, hospitalist consultation to stabilize the patient and prevent worsening of the patient's condition. - Data Points Laboratory Results: Laboratory Results 07/13/17 18:18 07/13/17 18:18 07/13/17 07/13/17 07/13/17 20:10 19:45 18:27 WBC RBC Hgb Hct MCV MCH MCHC RDW Plt Count MPV Neut % (Auto) Lymph % (Auto) [place] % (Auto) Eos % (Auto) Baso % (Auto) Nucleat RBC Rel Count Absolute Neuts (auto) Absolute Lymphs (auto) Absolute Monos (auto) Absolute Eos (auto) Absolute Basos (auto) Absolute Nucleated RBC Immature Gran % Immature Gran # PT INR APTT VBG Lactic Acid 1.2 mmol/L mmol/L (0.7-2.1) Sodium Potassium Chloride Carbon Dioxide Anion Gap BUN Creatinine Estimated GFR Glucose Calcium Total Bilirubin Procalcitonin 0.24 ng/mL H ng/mL (0.02-0.10) Urine Color YELLOW Urine Appearance CLEAR Urine pH 8.0 H (5.0-7.5) Ur Specific [place] 1.010 (1.002-1.030) Urine Protein NEGATIVE (NEGATIVE) Urine Ketones NEGATIVE (NEGATIVE) Urine Blood NEGATIVE (NEGATIVE) Urine Nitrate NEGATIVE (NEGATIVE) Urine Bilirubin NEGATIVE (NEGATIVE) Urine Urobilinogen NEGATIVE EU EU (0.2-1.0) Ur Leukocyte Esterase NEGATIVE (NEGATIVE) Ur Culture Indicated? NOT INDICATED (NI) Urine Glucose NEGATIVE (NEGATIVE) 07/13/17 07/13/17 07/13/17 18:18 18:18 18:18 WBC 16.88 10^3/uL H D 10^3/uL (3.80-9.50) RBC 5.74 10^6/uL 10^6/uL (4.40-6.38) Hgb 18.7 g/dL H g/dL (13.7-17.5) Hct 53.1 % H % (40.0-51.0) MCV 92.5 fL fL (81.5-99.8) MCH 32.6 pg pg (27.9-34.1) MCHC 35.2 g/dL g/dL (32.4-36.7) RDW 13.8 % % (11.5-15.2) Plt Count 278 10^3/uL 10^3/uL (150-400) MPV 8.8 fL fL (8.7-11.7) Neut % (Auto) 84.1 % H % (39.3-74.2) Lymph % (Auto) 5.9 % L % (15.0-45.0) [place] % (Auto) 9.0 % % (4.5-13.0) Eos % (Auto) 0.2 % L % (0.6-7.6) Baso % (Auto) 0.2 % L % (0.3-1.7) Nucleat RBC Rel Count 0.0 % % (0.0-0.2) Absolute Neuts (auto) 14.19 10^3/uL H 10^3/uL (1.70-6.50) Absolute Lymphs (auto) 1.00 10^3/uL 10^3/uL (1.00-3.00) Absolute Monos (auto) 1.52 10^3/uL H 10^3/uL (0.30-0.80) Absolute Eos (auto) 0.04 10^3/uL 10^3/uL (0.03-0.40) Absolute Basos (auto) 0.03 10^3/uL 10^3/uL (0.02-0.10) Absolute Nucleated RBC 0.00 10^3/uL 10^3/uL (0-0.01) Immature Gran % 0.6 % % (0.0-1.1) Immature Gran # 0.10 10^3/uL 10^3/uL (0.00-0.10) PT 14.0 SEC SEC (12.0-15.0) INR 1.06 (0.83-1.16) APTT 27.3 SEC SEC (23.0-38.0) VBG Lactic Acid Sodium 135 mEq/L mEq/L (135-145) Potassium 4.9 mEq/L mEq/L (3.5-5.2) Chloride 98 mEq/L mEq/L (97-110) Carbon Dioxide 22 mEq/l mEq/l (22-31) Anion Gap 15 mEq/L mEq/L (8-16) BUN 15 mg/dL mg/dL (7-23) Creatinine 1.0 mg/dL mg/dL (0.7-1.3) Estimated GFR > 60 Glucose 110 mg/dL H mg/dL (70-100) Calcium 9.1 mg/dL mg/dL (8.5-10.4) Total Bilirubin 1.2 mg/dL D mg/dL (0.1-1.4) Procalcitonin Urine Color Urine Appearance Urine pH Ur Specific [place] Urine Protein Urine Ketones Urine Blood Urine Nitrate Urine Bilirubin Urine Urobilinogen Ur Leukocyte Esterase Ur Culture Indicated? Urine Glucose Medications Given: Discontinued Medications Acetaminophen (Tylenol) 650 mg PO EDNOW ONE Stop: 07/13/17 18:25 Last Admin: 07/13/17 18:56 Dose: 650 mg Sodium Chloride (Ns) 1,000 mls @ 0 mls/hr IV EDNOW ONE; Wide Open PRN Reason: Protocol Stop: 07/13/17 18:25 Last Admin: 07/13/17 18:54 Dose: 1,000 mls Cefepime HCl 2 gm/ Sterile (Water) 12.5 mls @ 150 mls/hr IV EDNOW ONE PRN Reason: Protocol Stop: 07/13/17 20:22 Last Admin: 07/13/17 20:39 Dose: 12.5 mls Sodium Chloride (Ns) 1,000 mls @ 0 mls/hr IV EDNOW ONE; Wide Open PRN Reason: Protocol Stop: 07/13/17 20:19 Last Admin: 07/13/17 20:30 Dose: 1,000 mls Lidocaine (Uroject Lidocaine 2% Jelly) 20 ml UR EDNOW ONE Stop: 07/13/17 19:45 Last Admin: 07/13/17 19:45 Dose: 20 ml Departure - Departure Disposition: [facility] Inpatient Acute Clinical Impression: Pneumonia Qualifiers: Pneumonia type: due to unspecified organism Laterality: bilateral Lung location : lower lobe of lung Qualified Code(s): J18.1 - Lobar pneumonia, unspecified organism Condition: Good
[2017-07-13] MEDS ORDERED: NS 1,000 ML IV ONE ×2 (18:24→20:18)
[2017-07-13] MEDS ORDERED: ACETAMINOPHEN 325 MG TAB PO ONE (18:24)
[2017-07-13 18:33] LABS: PLATELET COUNT 278 10^3/uL (150-400)
[2017-07-13 18:51] LABS: INR 1.06 (0.83-1.16)
[2017-07-13] MEDS ORDERED: LIDOCAINE 2% JELLY 20 ML (UROJECT) ONE (19:41)
[2017-07-13] MEDS ORDERED: LIDOCAINE 2% JELLY 20 ML (UROJECT) UR ONE (19:44)
[2017-07-13] MEDS ORDERED: CEFEPIME HCL 2 GM in STERILE WATER INJ 12.5 ML IV ONE (20:18)
[2017-07-13] MEDS ORDERED: ONDANSETRON 4 MG/2 ML VIAL IVP PRN (20:41)
[2017-07-13] MEDS ORDERED: ONDANSETRON DISINTEGRATING 4 MG TAB PO PRN (20:41)
--- NOTE | 2017-07-13 23:20 | GHP ---
[f rep st] HISTORY AND PHYSICAL DATE OF ADMISSION: 07/13/2017 CHIEF COMPLAINT: Fever and weakness. HISTORY OF PRESENT ILLNESS: This patient is a 67-year-old male with history of multiple sclerosis who was recently admitted to the hospital last week with hypoxemia and bronchitis. He was discharged on Azithromycin and Prednisone. He returns to the hospital today, reporting a fever 104 and profound weakness. He notes he received a call from his primary care physician office today, reporting an abnormal urine culture which grew Enterococcus. He did endorse dysuria. He was started on oral amoxicillin but took just 1 dose today, when he developed a fever of 104. This was associated with rigors and chills. His respiratory symptoms seem somewhat improved. He still endorses a mild productive cough. He denies chest pain or shortness of breath. He does self- catheterize on a regular basis due to neurogenic bladder in the setting of multiple sclerosis. He has had prior urinary tract infections. He denies nausea, vomiting. He repeats decreased oral intake with decreased appetite in the setting of acute illness. At baseline, he is mostly wheelchair-bound due to his decreased functional capacity in the setting of MS. Upon arrival to the emergency department, he was found to be tachycardic with a heart rate of 122. He had mild hypoxemia, satting 90% on room air, and his temperature was 38.4. He has had no hypotension. Laboratory workup revealed elevated white blood cell count, but a normal lactate. Given his recent hospitalization, he is treated with IV cefepime. He received a 2 L normal saline fluid bolus in the emergency department and was admitted to the hospital for further management. PAST MEDICAL/SURGICAL HISTORY: 1. Multiple sclerosis, no longer on disease-modifying therapy, status post stem cell transplant. 2. Asthma. MEDICATIONS: Please see [employer] for complete updated outpatient medication list. ALLERGIES: Sulfa. FAMILY HISTORY: Reviewed and noncontributory. SOCIAL HISTORY: The patient lives independently with his . He denies alcohol, drug, or tobacco abuse. He is wheelchair-bound due to his multiple sclerosis. REVIEW OF SYSTEMS: A 10-point review of systems was performed and was negative except as per HPI. OBJECTIVE: VITAL SIGNS: Temperature 38.4, blood pressure 122/68, heart rate 106 down from 122, respiratory rate 20. He is 93% on room air. GENERAL: The patient is awake, alert, oriented, in no acute distress. HEENT: Head is atraumatic, normocephalic. Pupils equal, round, and reactive to light. Extraocular muscles intact. Oropharynx is clear. Mucous membranes are moist. NECK: Supple. There is no JVD. HEART: Tachycardic, a regular rhythm without murmur. LUNGS: Clear to auscultation bilaterally, though he has decreased air exchange due to poor respiratory effort. ABDOMEN: Soft, nondistended, nontender. Normoactive bowel sounds. He has no CVA tenderness. EXTREMITIES: He has marked bilateral lower extremity weakness, essentially 0/5 in bilateral lower extremities, which is slightly worse than his baseline. Otherwise warm and well perfused. NEUROLOGIC: Otherwise nonfocal. LABORATORY DATA: CBC: White blood cell count 16.9, hemoglobin 18.7, platelets 278. INR is normal at 1.02. Lactic acid is 1.2. Basic metabolic panel reveals normal electrolytes, normal creatinine of 1.0, glucose is 110. Procalcitonin is 0.24, which is relatively unchanged from July 07 when it was 0.25. Urinalysis is completely negative. I did review his outpatient urine culture, which grew greater than 100,000 colony-forming units of Enterobacter sensitive to ampicillin and amoxicillin. Chest x-ray is personally reviewed and interpreted. He has had decreased lung valenzuela due to poor respiratory effort. I do not appreciate an obvious focal consolidation, though the radiology report notes bibasilar airspace opacities which may represent atelectasis and/or pneumonia. ASSESSMENT AND PLAN: This patient is a 67-year-old male with history of multiple sclerosis, who presents to the emergency department with fever and weakness, and is admitted to the hospital for sepsis. 1. Sepsis, likely secondary to urinary source, though respiratory source is possible. SIRS criteria include leukocytosis, tachycardia, and fever. Normal lactate. His procalcitonin is unchanged from last week at 0.24. Although his urinalysis is negative here, he did have an abnormal urine culture in the outpatient setting, and he does endorse recent dysuria symptoms in the setting of frequent self-catheterizations. Also consider respiratory source of his sepsis, though that seems less likely. His leukocytosis may be hastened by his recent outpatient prednisone use, which he was discharged on during his last hospitalization for bronchitis and hypoxemia. Blood cultures are pending. Will also send a sputum culture if he is able to produce sputum. Given his recent hospitalization and recurrent urinary tract infections in the setting of self-catheterization, will cover with IV cefepime while awaiting his blood cultures. Based on his recent urine culture, his antibiotics can likely be de- escalated in the next 24 hours if his blood cultures remain negative. 2. Multiple sclerosis. He is status post stem cell transplant. He has previously been treated with Copaxone for 20 years, though he is currently only on medications for symptom management. These can be continued once his medical record is completed. Physical therapy/occupational therapy evaluations are requested. Given his acute illness and worsening weakness, he may require shelter facility rehab. 3. Deep venous thrombosis prophylaxis. Patient is high risk. Will start Lovenox in the morning. 4. Code status: Patient is full code. 5. Disposition. Patient admitted to inpatient status. I anticipate greater than 48 hours of hospitalization for ongoing management of his sepsis. /[id number]/MODL MTDD
[2017-07-14] MEDS: ACETAMINOPHEN 325 MG TAB PO PRN (03:45)
[2017-07-14] MEDS: CEFEPIME HCL 2 GM in STERILE WATER INJ 12.5 ML IV SCH ×2 (03:45→13:09)
[2017-07-14 04:01] LABS: PLATELET COUNT 175 10^3/uL (150-400)
[2017-07-14] MEDS ORDERED: predniSONE 20 MG TAB PO SCH (04:30)
[2017-07-14] MEDS: BACLOFEN 20 MG TAB PO SCH ×4 (04:30→20:59)
[2017-07-14] MEDS ORDERED: MODAFINIL 200 MG PO SCH (09:00)
[2017-07-14] MEDS ORDERED: NON-FORMULARY NEW DRUG (Amantadine Hcl [Amantadine] 100 MG) PO SCH (09:00)
[2017-07-14] MEDS ORDERED: AMANTADINE HCL 100 MG CAP PO SCH (09:00)
[2017-07-14] MEDS: MODAFINIL 100 MG TAB PO SCH ×2 (09:17→13:08)
[2017-07-14] MEDS: ENOXAPARIN 40 MG/0.4 ML SYR SC SCH (09:18)
[2017-07-14] MEDS: OXYBUTYNIN 5 MG EXT REL TAB PO SCH (09:18)
[2017-07-14] MEDS ORDERED: NON-FORMULARY NEW DRUG (Eszopiclone [Lunesta] 3 MG) PO PRN (09:54)
--- NOTE | 2017-07-14 10:16 | PDMN ---
Medical Necessity Medical necessity: M160 sepsis and other febrile illness A-3 days: sepsis with leukocytosis, tachycardia, fever. likely urinary source- pt self caths due to neurogenic bladder in setting of MS. Poss. URI. recent hospitalization for bronchitis and hypoxemia, . MS S/P stem cell transplant, worsening weakness, PT/OT eval nec. , anticipate > 2 midnights ongoing med nec care
[2017-07-14] MEDS: ALBUTEROL 60 PUFFS/8 GM MDI IH SCH ×3 (10:38→17:48)
[2017-07-14] MEDS: ACYCLOVIR 400 MG TAB PO SCH ×2 (10:45→20:59)
[2017-07-14] MEDS ORDERED: MODAFINIL 100 MG PO SCH (12:00)
--- NOTE | 2017-07-14 12:44 | ASMTCASEMG ---
Living Arrangements What is your living Answers: With Spouse arrangement? Who do you live with? Type Of Residence What kind of residence do Answers: House you live in? Discharge Plan Comments Coordination Status Comments Notes: Pts case discussed in tx rounds. Pt is a 67 y/o man admitted for pneumonia and sepsis. Pts recently had back surgery. PT has advance MS. PT is recommending inpatient rehab. OT has been ordered and awaiting recommendations. CM requested that Dr. Dudley put in an order for rehab consult. Needs are TBD at this time. CM to follow. Plan: TBD Date Signed: 07/14/2017 12:43 PM Electronically Signed By:ANA LILIA Ball
[2017-07-14] MEDS: AMANTADINE HCL 100 MG CAP PO SCH ×2 (13:50→16:38)
--- NOTE | 2017-07-14 14:10 | HOSPPROG ---
Hospitalist Progress Note Assessment/Plan: #Sepsis, resolved #Bibasilar Pneumonia #Enteroccocus UTI #Dehydration #advance MS #generalized weakness Plan: Feels better Stop Cefepime Start Zosyn better coverage for Enteroccocus Provide additional IVF wait for cultures to come back Lovenox for DVT proph Subjective: feels better. cultures are not back yest. Objective: Vital Signs Temp Pulse Resp BP Pulse Ox 36.8 C 91 16 106/57 L 95 07/14/17 12:32 07/14/17 12:32 07/14/17 12:32 07/14/17 12:32 07/14/17 12:32 Microbiology 07/14/17 04:30 - Final Sputum, Expectorated Laboratory Results 07/14/17 03:22 07/14/17 03:22 07/13/17 07/14/17 07/15/17 05:59 05:59 05:59 Intake Total 2672.5 1030 Output Total 2450 1250 Balance 222.5 -220 PT 14.0 SEC (12.0-15.0) 07/13/17 18:18 INR 1.06 (0.83-1.16) 07/13/17 18:18 - Physical Exam Constitutional: no apparent distress, not in pain Eyes: PERRL, EOMI Ears, Nose, Mouth, Throat: moist mucous membranes, hearing normal, ears appear normal Cardiovascular: regular rate and rhythym, No edema Respiratory: no respiratory distress, no rales or rhonchi, clear to auscultation Gastrointestinal: normoactive bowel sounds, soft, non-tender abdomen, no palpable masses Genitourinary: no bladder fullness Skin: warm Musculoskeletal: generalized weakness Neurologic: AAOx3 Psychiatric: interacting appropriately, not anxious, not encephalopathic Lymph, Heme, Immunologic: petechiae ICD10 Worksheet Patient Problems: Problems Problem Status Onset Pneumonia Acute Multiple sclerosis exacerbation Acute UTI (urinary tract infection) Acute
[2017-07-14] MEDS ORDERED: NS W/ 20 KCl/L 1,000 ML IV SCH (14:15)
[2017-07-14] MEDS: PIPERACILLIN/TAZO 3.375 GM/DEX 50 ML IV SCH ×2 (18:36→23:41)
[2017-07-14] MEDS ORDERED: ALBUTEROL 60 PUFFS/8 GM MDI IH PRN (20:31)
[2017-07-15 04:24] LABS: PLATELET COUNT 153 10^3/uL (150-400)
[2017-07-15] MEDS: AMANTADINE HCL 100 MG CAP PO SCH ×3 (06:09→16:26)
[2017-07-15] MEDS: BACLOFEN 20 MG TAB PO SCH ×4 (06:10→20:44)
[2017-07-15] MEDS: PIPERACILLIN/TAZO 3.375 GM/DEX 50 ML IV SCH ×4 (06:10→22:29)
[2017-07-15] MEDS: ACYCLOVIR 400 MG TAB PO SCH ×2 (08:09→20:44)
[2017-07-15] MEDS: ENOXAPARIN 40 MG/0.4 ML SYR SC SCH (08:10)
[2017-07-15] MEDS: OXYBUTYNIN 5 MG EXT REL TAB PO SCH (08:10)
[2017-07-15] MEDS: MODAFINIL 100 MG TAB PO SCH ×2 (08:10→12:57)
[2017-07-15] MEDS ORDERED: predniSONE 10 MG TAB PO SCH (09:00)
[2017-07-15] MEDS ORDERED: BISACODYL 10 MG SUPP PR PRN (14:15)
[2017-07-15] MEDS ORDERED: LACTULOSE 20 GM/30 ML UDCUP PO PRN (14:15)
[2017-07-15] MEDS ORDERED: POLYETHYLENE GLYCOL 3350 17 GM PKT PO PRN (14:15)
--- NOTE | 2017-07-15 14:20 | HOSPPROG ---
Hospitalist Progress Note Assessment/Plan: #Sepsis, resolved #Bibasilar Pneumonia #Enteroccocus UTI #Dehydration #advance MS #generalized weakness Plan: Feels better cont Zosyn change to oral meds tomorrow no need for additional IVF wait for cultures to come back, negative thus far Lovenox for DVT proph Dispo: likely d/c tomorrow or day after Subjective: doing better. still on 2L o2. Last dose of Prednisone is today. Afebrile. De Paz in place per his request Objective: Vital Signs Temp Pulse Resp BP Pulse Ox 36.4 C 88 18 139/83 H 96 07/15/17 08:00 07/15/17 08:00 07/15/17 08:00 07/15/17 08:00 07/15/17 08:00 Microbiology 07/14/17 04:30 - Final Sputum, Expectorated Laboratory Results 07/15/17 03:35 07/15/17 03:35 07/14/17 07/15/17 07/16/17 05:59 05:59 05:59 Intake Total 2672.5 2040 Output Total 2450 3875 1300 Balance 222.5 -1835 -1300 PT 14.0 SEC (12.0-15.0) 07/13/17 18:18 INR 1.06 (0.83-1.16) 07/13/17 18:18 - Physical Exam Constitutional: no apparent distress Eyes: PERRL, EOMI Ears, Nose, Mouth, Throat: moist mucous membranes, hearing normal, ears appear normal Cardiovascular: regular rate and rhythym, No edema Respiratory: no respiratory distress, no rales or rhonchi, clear to auscultation Gastrointestinal: normoactive bowel sounds, soft, non-tender abdomen, no palpable masses Genitourinary: no bladder fullness Skin: warm Musculoskeletal: generalized weakness Neurologic: AAOx3 Psychiatric: interacting appropriately, not anxious, not encephalopathic Lymph, Heme, Immunologic: No petechiae ICD10 Worksheet Patient Problems: Problems Problem Status Onset Pneumonia Acute Multiple sclerosis exacerbation Acute UTI (urinary tract infection) Acute
[2017-07-15] MEDS: ACETAMINOPHEN 325 MG TAB PO PRN (16:25)
[2017-07-15] MEDS: SENNOSIDES/DOCUSATE SODIUM TAB PO SCH (20:43)
[2017-07-15] MEDS: ZOLPIDEM TARTRATE 5 MG TAB PO PRN (22:29)
[2017-07-16] MEDS: BACLOFEN 20 MG TAB PO SCH ×4 (05:24→21:00)
[2017-07-16] MEDS: PIPERACILLIN/TAZO 3.375 GM/DEX 50 ML IV SCH ×4 (05:24→23:10)
[2017-07-16] MEDS: AMANTADINE HCL 100 MG CAP PO SCH ×3 (05:24→17:38)
[2017-07-16] MEDS: MODAFINIL 100 MG TAB PO SCH ×2 (09:13→12:14)
[2017-07-16] MEDS: SENNOSIDES/DOCUSATE SODIUM TAB PO SCH ×2 (09:13→21:02)
[2017-07-16] MEDS: OXYBUTYNIN 5 MG EXT REL TAB PO SCH ×2 (09:14→09:16)
[2017-07-16] MEDS: ACYCLOVIR 400 MG TAB PO SCH ×2 (09:14→20:59)
[2017-07-16] MEDS: ENOXAPARIN 40 MG/0.4 ML SYR SC SCH (09:14)
--- NOTE | 2017-07-16 13:37 | HOSPPROG ---
Hospitalist Progress Note Assessment/Plan: 67 y male who was recently hospitalized for acute bronchitis p/w fever, tachycardia, and sepsis of unclear source. At the time of his last admission he was d/c on a steroid taper. He had a urinalysis which showed bacteruria but negative for nitrates, LE, or blood. He did not have any urinary sx's at that time. The pt was not feeling well and his PCP prescribed Amoxicillin for Enterococcus UTI which he took one or two doses. At the time of this admission he still had no urinary sx's but presented with cough, malaise, tachycardia, sepsis. CXR basilar pneumonia. UA was unremarkable. Overnight he has had recurrence of fever, TMax 99.6. He cont on Zosysn to cover both a pulm and process. Cultures are negative thus far but cannot r/o enterococcus Bacteremia. Clinically he appears to be improving. Leukocytosis has resovled. If he cont to improve and cultures remain negative, would consider transition to Augmentin. If declines, consider changing abx and looking for other source including checking a TTE. #Sepsis, resolving #Fever #Bibasilar Pneumonia, cough has improved, still on 2 LO2 #Enteroccocus UTI #Dehydration, resolved, good urine output #advance MS #generalized weakness, improving #constipation: no BM since prior to admission. Stool regimen. Plan: per above wait for cultures to come back, negative thus far Lovenox for DVT proph Dispo: d/c once clinically improved. Subjective: Fever last night. no cp or sob. overall he is feeling better. he is constipated Objective: Vital Signs Temp Pulse Resp BP Pulse Ox 36.7 C 85 14 134/77 H 93 07/16/17 08:35 07/16/17 08:35 07/16/17 08:35 07/16/17 08:35 07/16/17 12:20 Microbiology 07/14/17 04:30 - Final Sputum, Expectorated Sputum Culture - Final Laboratory Results 07/15/17 03:35 07/15/17 03:35 07/15/17 07/16/17 07/17/17 05:59 05:59 05:59 Intake Total 2040 2420 Output Total 3875 5850 1250 Balance -1835 -3430 -1250 PT 14.0 SEC (12.0-15.0) 07/13/17 18:18 INR 1.06 (0.83-1.16) 07/13/17 18:18 - Physical Exam Constitutional: no apparent distress, not in pain Eyes: PERRL, EOMI Ears, Nose, Mouth, Throat: moist mucous membranes Cardiovascular: regular rate and rhythym, no murmur, rub, or gallop, No JVD, No edema Respiratory: no respiratory distress, no rales or rhonchi, clear to auscultation Gastrointestinal: normoactive bowel sounds, soft, non-tender abdomen Skin: warm Musculoskeletal: generalized weakness Neurologic: AAOx3 Psychiatric: interacting appropriately, not anxious, not encephalopathic Lymph, Heme, Immunologic: No petechiae ICD10 Worksheet Patient Problems: Problems Problem Status Onset Pneumonia Acute Multiple sclerosis exacerbation Acute UTI (urinary tract infection) Acute
--- NOTE | 2017-07-16 15:09 | ASMTCMCOM ---
CM Note CM Note Notes: Pts case discussed in tx rounds. CM met w/ pt for dispo planning. Pt is agreeable to going to SNF. Pt would like referrals made to [facility] and [facility]. Pt reports that he would like to stay in [place], if possible. Referrals sent to both facilities. Pt would like accepting facility to start obtaining auth. [facility] is able to accept and will start getting auth. CM informed pt of this. Pt is on board w/ this plan. CM to follow. Plan: [facility] pending auth Date Signed: 07/16/2017 03:08 PM Electronically Signed By:ANA LILIA Ball
[2017-07-16] MEDS: ZOLPIDEM TARTRATE 5 MG TAB PO PRN (23:10)
[2017-07-17] MEDS: AMANTADINE HCL 100 MG CAP PO SCH ×3 (06:17→17:34)
[2017-07-17] MEDS: BACLOFEN 20 MG TAB PO SCH ×4 (06:17→20:47)
[2017-07-17] MEDS: PIPERACILLIN/TAZO 3.375 GM/DEX 50 ML IV SCH ×4 (06:17→23:12)
[2017-07-17] MEDS: ENOXAPARIN 40 MG/0.4 ML SYR SC SCH (09:10)
[2017-07-17] MEDS: MODAFINIL 100 MG TAB PO SCH ×2 (09:15→12:28)
[2017-07-17] MEDS: SENNOSIDES/DOCUSATE SODIUM TAB PO SCH ×2 (09:15→21:20)
[2017-07-17] MEDS: ACYCLOVIR 400 MG TAB PO SCH ×2 (09:16→20:47)
--- NOTE | 2017-07-17 12:13 | HOSPPROG ---
Hospitalist Progress Note Assessment/Plan: 67 year man with a history of MS is admitted with fever and weakness. Evaluation was positive for sepsis of unclear source however he did have a abnormal urinalysis as an outpatient. Chest x-ray on admission showed possible pneumonia however appeared fairly normal to my eye. He did have cough and fever # sepsis likely secondary to urinary source. Currently afebrile and feeling better. * Transition to oral antibiotics to treat pansensitive Enterococcus * Continue De Paz, when patient able he will transition to straight cathing at rehab * Likely ready for dispo in the morning # cough with fairly normal chest x-ray. Will repeat today given possible basilar infiltrates noted. Status post 5 days of IV Zosyn # multiple sclerosis status post stem-cell treatment 18 months ago with possible some slight immunosuppression still. # generalized weakness will need outpatient rehab # constipation # DVT prophylaxis on Lovenox Subjective: Patient new to me and chart reviewed. Feels better today has had no cough no urinary symptoms strength in his upper extremities feel at baseline Objective: Vital Signs Temp Pulse Resp BP Pulse Ox 36.8 C 82 16 138/84 H 92 07/17/17 11:14 07/17/17 11:14 07/17/17 11:14 07/17/17 11:14 07/17/17 11:14 Microbiology 07/14/17 04:30 - Final Sputum, Expectorated Sputum Culture - Final Laboratory Results 07/15/17 03:35 07/15/17 03:35 07/16/17 07/17/17 07/18/17 05:59 05:59 05:59 Intake Total 2420 1132 Output Total 5850 5050 Balance -3430 -3918 PT 14.0 SEC (12.0-15.0) 07/13/17 18:18 INR 1.06 (0.83-1.16) 07/13/17 18:18 - Physical Exam Constitutional: chronically ill appearing Eyes: PERRL, EOMI Ears, Nose, Mouth, Throat: moist mucous membranes Cardiovascular: regular rate and rhythym Respiratory: no respiratory distress, no rales or rhonchi, clear to auscultation Gastrointestinal: normoactive bowel sounds, soft, non-tender abdomen Genitourinary: no bladder fullness Skin: warm Musculoskeletal: generalized weakness Neurologic: AAOx3 Psychiatric: interacting appropriately, not anxious ICD10 Worksheet Patient Problems: Problems Problem Status Onset Pneumonia Acute Multiple sclerosis exacerbation Acute UTI (urinary tract infection) Acute
--- NOTE | 2017-07-17 17:04 | ASMTCMCOM ---
CM Note CM Note Notes: Spoke with Tatyana, at [facility]; willing to accept pt; currently waiting on insurance authorization, which will not be available until Wednesday 07/19. [facility] unable to accept pt; pt's insurance is not in network. Inpatient Rehab still following pt with a plan to re-evaluate 07/19. Updated RN, MD & pt. CM will continue to follow. Date Signed: 07/17/2017 10:21 AM Electronically Signed By:Yue Malone RN
[2017-07-17] MEDS: ZOLPIDEM TARTRATE 5 MG TAB PO PRN (23:15)
[2017-07-18 05:25] LABS: PLATELET COUNT 227 10^3/uL (150-400)
[2017-07-18] MEDS: BACLOFEN 20 MG TAB PO SCH ×4 (05:53→21:57)
[2017-07-18] MEDS: AMANTADINE HCL 100 MG CAP PO SCH ×3 (05:53→17:09)
[2017-07-18] MEDS: SENNOSIDES/DOCUSATE SODIUM TAB PO SCH ×2 (08:25→22:08)
[2017-07-18] MEDS: ACYCLOVIR 400 MG TAB PO SCH ×2 (08:25→21:57)
[2017-07-18] MEDS: ENOXAPARIN 40 MG/0.4 ML SYR SC SCH (08:25)
[2017-07-18] MEDS: MODAFINIL 100 MG TAB PO SCH ×2 (08:43→12:54)
--- NOTE | 2017-07-18 15:15 | HOSPPROG ---
Hospitalist Progress Note Assessment/Plan: 67 year man with a history of MS is admitted with fever and weakness. Evaluation was positive for sepsis of unclear source however he did have a abnormal urinalysis as an outpatient. Chest x-ray on admission showed possible pneumonia however appeared fairly normal to my eye. He did have cough and fever. Pt complaining of diarrhea # sepsis likely secondary to urinary source. Currently afebrile and feeling better. * Transition to oral antibiotics to treat pansensitive Enterococcus * Continue De Paz, when patient able he will transition to straight cathing at rehab * Likely ready for dispo in the morning # Diarrhea: Possibly from laxitives or antibiotics * likely no c.diff but will check. # cough with fairly normal chest x-ray. Will repeat today given possible basilar infiltrates noted. Status post 5 days of IV Zosyn # multiple sclerosis status post stem-cell treatment 18 months ago with possible some slight immunosuppression still. # generalized weakness will need outpatient rehab # constipation # DVT prophylaxis on Lovenox dispo: pt ready for dc if no c.diff. Considering inpt rehab if he is accepted since he is feeling better. Subjective: had diarrhea all night, feels exhausted today Objective: Vital Signs Temp Pulse Resp BP Pulse Ox 36.8 C 86 16 131/92 H 92 07/18/17 07:17 07/18/17 07:17 07/18/17 07:17 07/18/17 07:17 07/18/17 07:17 Laboratory Results 07/18/17 04:33 07/18/17 04:33 07/17/17 07/18/17 07/19/17 05:59 05:59 05:59 Intake Total 1132 1050 Output Total 5050 2950 Balance -3918 -1900 PT 14.0 SEC (12.0-15.0) 07/13/17 18:18 INR 1.06 (0.83-1.16) 07/13/17 18:18 - Physical Exam Constitutional: not in pain, chronically ill appearing Eyes: PERRL, EOMI Ears, Nose, Mouth, Throat: moist mucous membranes Cardiovascular: regular rate and rhythym Respiratory: no respiratory distress, clear to auscultation, reduced air movement (bases) Gastrointestinal: normoactive bowel sounds, soft, non-tender abdomen Genitourinary: no bladder fullness Skin: warm Musculoskeletal: No full muscle strength (secondary to MS) Neurologic: AAOx3 Psychiatric: interacting appropriately, not anxious ICD10 Worksheet Patient Problems: Problems Problem Status Onset UTI (urinary tract infection) Acute Multiple sclerosis exacerbation Acute Pneumonia Acute
[2017-07-18] MEDS: ZOLPIDEM TARTRATE 5 MG TAB PO PRN (23:25)
[2017-07-19] MEDS: BACLOFEN 20 MG TAB PO SCH ×2 (05:38→12:37)
[2017-07-19] MEDS: AMANTADINE HCL 100 MG CAP PO SCH ×2 (05:38→13:01)
[2017-07-19] MEDS: ACETAMINOPHEN 325 MG TAB PO PRN (06:04)
[2017-07-19] MEDS ORDERED: diphenhydrAMINE 25 MG CAP PO PRN (06:26)
[2017-07-19] MEDS: MODAFINIL 100 MG TAB PO SCH ×2 (09:35→13:01)
[2017-07-19] MEDS: ENOXAPARIN 40 MG/0.4 ML SYR SC SCH (09:35)
[2017-07-19] MEDS: ACYCLOVIR 400 MG TAB PO SCH (09:35)
[2017-07-19] MEDS: SENNOSIDES/DOCUSATE SODIUM TAB PO SCH (10:02)
[2017-07-19 11:00] VITALS: BP 136/78
[2017-07-19] MEDS ORDERED: FAMOTIDINE 20 MG TAB PO SCH (11:45)
--- NOTE | 2017-07-19 14:28 | HOSPPROG ---
Hospitalist Progress Note Assessment/Plan: 67 year man with a history of MS is admitted with fever and weakness. Evaluation was positive for sepsis of unclear source however he did have a abnormal urinalysis as an outpatient. Chest x-ray on admission showed possible pneumonia however appeared fairly normal to my eye. Complains of some mild swelling over night however that has since resolved. He had a similar reaction to Bactrim previously # sepsis likely secondary to urinary source. Currently afebrile and feeling better. * Stat post treatment with amoxicillin and follow-up UA was clean * Continue Eduardo, when patient able he will transition to straight cathing at rehab * Medically stable for transfer to rehab # Diarrhea: Possibly from laxitives or antibiotics, symptoms resolved * Negative GI panel # mouth swelling, resolved with Benadryl and Pepcid. Antibiotics stopped, will follow symptoms and give Benadryl on an as-needed basis # cough with fairly normal chest x-ray. Repeat x-ray showed no pneumonia # rash on face. Had been given an antifungal as an outpatient will start ketoconazole cream here # multiple sclerosis status post stem-cell treatment 18 months ago with possible some slight immunosuppression still. # generalized weakness will need outpatient rehab # constipation # DVT prophylaxis on Lovenox dispo: pt ready for dc if no c.diff. Considering inpt rehab if he is accepted since he is feeling better. Subjective: Patient complained of some minor mouth swelling however exam normal at this time and symptoms improving with Benadryl. Diarrhea resolved Objective: Vital Signs Temp Pulse Resp BP Pulse Ox 36.6 C 87 18 136/78 H 93 07/19/17 09:25 07/19/17 09:25 07/19/17 09:25 07/19/17 09:25 07/19/17 09:25 Microbiology 07/18/17 22:32 Gastrointestinal Tract Panel (PCR) - Final Stool No Organism Detected Laboratory Results 07/18/17 04:33 07/18/17 04:33 07/18/17 07/19/17 07/20/17 05:59 05:59 05:59 Intake Total 1050 1184 Output Total 2950 3950 Balance -1900 -2766 PT 14.0 SEC (12.0-15.0) 07/13/17 18:18 INR 1.06 (0.83-1.16) 07/13/17 18:18 - Physical Exam Constitutional: not in pain, chronically ill appearing Eyes: PERRL Ears, Nose, Mouth, Throat: moist mucous membranes Cardiovascular: regular rate and rhythym Respiratory: no respiratory distress, reduced air movement (Bases) Gastrointestinal: normoactive bowel sounds, soft, non-tender abdomen Genitourinary: no bladder fullness, eduardo in urethra Skin: warm, other (Scattered erythema around mouth) Musculoskeletal: No full muscle strength (Weakness lower extremities greater than upper extremities due to MS) Neurologic: AAOx3, weakness, No facial droop Psychiatric: interacting appropriately, not anxious ICD10 Worksheet Patient Problems: Problems Problem Status Onset Pneumonia Acute Multiple sclerosis exacerbation Acute UTI (urinary tract infection) Acute
[2017-07-19] MEDS ORDERED: KETOCONAZOLE 2% 15 GM CREAM TP SCH (14:30)
--- NOTE | 2017-07-19 16:02 | GDS ---
[f rep st] DISCHARGE SUMMARY DIAGNOSES: 1. Fever, sepsis, likely secondary to urinary source, resolved. 2. Multiple sclerosis, status post stem cell transplant, mildly immunocompromised. 3. Deconditioning. HOSPITAL COURSE: The patient is a 67-year-old with a history of advanced multiple sclerosis, status post stem cell transplant 18 months ago. He comes in with fevers and sepsis. He did have an enteroc occus urinary tract infection diagnosed as an outpatient, with some urinary retention. He does provi de his self-cathing at home. On admission, he also had some respiratory distress, and chest x-ray sh owed bilateral infiltrates, which I suspect are not secondary to pneumonia but likely secondary to se psis, as he had no obvious symptoms of pneumonia. He was initially treated with Zosyn and transition ed to amoxicillin. Repeat urinalysis was clean, and he felt much improved at the end of his hospital ization, although he remains quite weak and deconditioned. Prior to discharge, he developed some carla th swelling that he described as similar to a previous reaction he had to Bactrim. He was given Sarver dryl and Pepcid for this. And at the time of discharge, his symptoms have improved. Because of thes e symptoms, his amoxicillin was discontinued due to the fact that his urinalysis was clean and he was otherwise improved. He continues to have urinary retention due to his MS, and a De Paz catheter has been placed. Typically, when he is at baseline, he is able to self-cath. However, due to weakness, he has been unable to do that, so would recommend continuing De Paz catheter until he is strong enough to proceed with self-cathing. At that time, he can resume his own home care 4 times a day as needed . CONDITION ON DISCHARGE: Good. Vital signs are stable. He has been afebrile throughout his hospital ization. Heart rate 87. Blood pressure 136/78. He is 93% on room air. He is alert and oriented. He has significant weakness, lower extremities greater than upper extremities. He has a mild tinea r missy on his face that is being treated with a cream. The rest of his exam is unremarkable. DISCHARGE MEDICATIONS: Please see discharge medication form. FOLLOWUP: He will be discharged to [place] [facility] inpatient rehab. Total time spent on coordination of care the day of discharge is 35 minutes. /[id number]/MODL
--- NOTE | 2017-07-19 16:40 | PDIAF ---
- Diagnosis Diagnosis: UTI, MS Code Status: Full Code - Medication Management Discharge Medications: Medications to Continue on Transfer Amantadine HCl [Amantadine] 100 mg PO TID 06/13/14 [Last Taken 07/13/17 2 DOSES] Baclofen [Baclofen 20 mg (*)] 30 mg PO QID 06/13/14 [Last Taken 07/13/17 2 DOSES ] Modafinil [Provigil 200 mg] 200 mg PO DAILY 06/13/14 [Last Taken 07/13/17] Oxybutynin Chloride Xl [Ditropan Xl 5mg (*)] 10 mg PO DAILY 06/13/14 [Last Taken 07/13/17] Tizanidine HCl [Zanaflex] 8 mg PO HS 06/13/14 [Last Taken 07/12/17] tiZANidine HCL [Zanaflex] 4 mg PO DAILY@12 06/13/14 [Last Taken 07/13/17] Acyclovir [Zovirax 400 mg (*)] 400 mg PO BID 07/15/16 [Last Taken 07/13/17 1 DOSE] Albuterol [Proventil Inhaler HFA (*)] 1 - 2 puffs IH Q4H 07/07/17 [Last Taken ] Eszopiclone [Lunesta] 3 mg PO HS PRN 07/07/17 [Last Taken 07/05/17] Herbals/Supplements -Info Only 1 ea PO DAILY 07/07/17 [Last Taken 07/07/17] Modafinil [Provigil] 100 mg PO DAILY@12 07/07/17 [Last Taken 07/13/17] Acetaminophen [Tylenol 325mg (*)] 650 mg PO Q4HRS PRN tab 07/19/17 [Last Taken Unknown] Famotidine [Heartburn Prevention] 20 mg PO BID PRN #1 tablet 07/19/17 [Last Taken Unknown] Ketoconazole 2% [Nizoral 2% Cream (*)] 1 carine TP DAILY cream 07/19/17 [Last Taken Unknown] Polyethylene Glycol 3350 [Miralax 17 gm (*)] 17 gm PO DAILY PRN pkt 07/19/17 [ Last Taken Unknown] Sennosides/Docusate Sodium [Senokot-S] 1 - 2 tab PO BID tab 07/19/17 [Last Taken Unknown] diphenhydrAMINE [Benadryl 25 MG (*)] 25 mg PO Q6HRS PRN cap 07/19/17 [Last Taken Unknown] Discharge Medications: Refer to the Discharge Home Medication list for PRN reason. - Orders Services needed: Registered Nurse, Certified Coater Operator Insulation Board, Master Picker/Puller , Physical Therapy, Occupational Therapy Isolation Type: None Diet Recommendation: no restrictions on diet Diet Texture: Regular Texture Diet - Follow Up Care Current Providers and Referrals: Patient,NotPresent [Unknown] - As per Instructions
--- NOTE | 2017-07-19 21:22 | ASDISCHSUM ---
Discharge Information Plan Status:Inpatient Rehab Medically Cleared to Leave: Discharge Date:07/19/2017 04:17 PM D/C Disposition:[facility] IP ADT D/C Disposition:[facility] IP Projected Discharge Date:07/17/2017 11:00 AM Transportation at D/C:Family Discharge Delay Reason: Follow-Up Date:07/17/2017 11:00 AM Discharge Slot: Final Diagnosis: Placement Information Referral Type:*Long Term/SNF Referral ID:[id number] Provider Name: Address 1: Phone Number: Address 2: Fax Number: City: Selection Factors: State: Patient Contact Information Contact Name:HERBER Relationship: Address:[address] Work Phone: City:[facility] Phone: [facility]/Zip Code:[place] [address] Email: Financial Information Financial Class:Balwinder Dalal Primary Plan Desc:[facility] Primary Plan Number:[id number] Secondary Plan Desc: Secondary Plan Number: Assessment Information [facility] Initial CM Assessment Living Arrangements What is your living Answers: With Spouse arrangement? Who do you live with? Type Of Residence What kind of residence do Answers: House you live in? Discharge Plan Comments Coordination Status Comments Notes: Pts case discussed in tx rounds. Pt is a 67 y/o man admitted for pneumonia and sepsis. Pts recently had back surgery. PT has advance MS. PT is recommending inpatient rehab. OT has been ordered and awaiting recommendations. CM requested that Dr. Dudley put in an order for rehab consult. Needs are TBD at this time. CM to follow. Plan: TBD Date Signed: 07/14/2017 12:43 PM Electronically Signed By:ANA LILIA Ball [facility] CM Progress Note CM Note CM Note Notes: Pts case discussed in tx rounds. CM met w/ pt for dispo planning. Pt is agreeable to going to SNF. Pt would like referrals made to [facility] and [facility]. Pt reports that he would like to stay in [place], if possible. Referrals sent to both facilities. Pt would like accepting facility to start obtaining auth. [facility] is able to accept and will start getting auth. CM informed pt of this. Pt is on board w/ this plan. CM to follow. Plan: [facility] pending auth Date Signed: 07/16/2017 03:08 PM Electronically Signed By:ANA LILIA Ball [facility] YUVAL Progress Note CM Note CM Note Notes: Spoke with Tatyana, at [facility]; willing to accept pt; currently waiting on insurance authorization, which will not be available until Wednesday 07/19. [facility] unable to accept pt; pt's insurance is not in network. [facility]patient Rehab still following pt with a plan to re-evaluate 07/19. Updated RNMD & pt. CM will continue to follow. Date Signed: 07/17/2017 10:21 AM Electronically Signed By:Yue Malone RN [facility] Progress Note CM Note CM Note Notes: Spoke with Lydia, from [facility]; auth received; willing to accept. Met with pt & his to discuss; agreeable to dc to [facility]patient [facility]hab. Updated & RN. Pt's to transport pt. Updated Lydia. No other needs at this time. Date Signed: 07/19/2017 09:19 PM Electronically Signed By:Yue Malone RN Intervention Information
== END 2017-07-19 16:17 | DRG 872 ==
LOC: EDUNIT# → F2W 21:42 → F1N 07-17 18:34
PROVIDERS: ADMIT Hospitalist; ATTEND Internal Medicine
DX: A41.9 Sepsis, unspecified organism (principal); N39.0 Urinary tract infection, site not specified; B95.2 Enterococcus as the cause of diseases classified elsewhere; R05 Cough; G35 Multiple sclerosis; R19.7 Diarrhea, unspecified; R21 Rash and other nonspecific skin eruption; R22.0 Localized swelling, mass and lump, head; R33.8 Other retention of urine; J45.909 Unspecified asthma, uncomplicated; E86.0 Dehydration; K59.00 Constipation, unspecified; Z87.440 Personal history of urinary (tract) infections; Z94.84 Stem cells transplant status; Z88.2 Allergy status to sulfonamides
CPT/HCPCS: 96374; 97110-GP; 97140-GP; 97162-GP; 97166-GO; 97530-GO; 97530-GP; 97535-GO; J0692; J1650; J2543; J7512

== ENCOUNTER 2017-07-19 14:39 | Inpatient (IN) | payer OTHER ==
[2017-07-19] MEDS ORDERED: ACETAMINOPHEN 325 MG TAB PO PRN (17:07)
[2017-07-19] MEDS ORDERED: SENNOSIDES/DOCUSATE SODIUM TAB PO PRN (17:07)
[2017-07-19] MEDS ORDERED: FAMOTIDINE 20 MG TAB PO PRN (17:07)
[2017-07-19] MEDS ORDERED: diphenhydrAMINE 25 MG CAP PO PRN (17:07)
[2017-07-19] MEDS ORDERED: CALCIUM CARBONATE 500 MG CHEWABLE TAB PO PRN (17:32)
[2017-07-19] MEDS ORDERED: RANITIDINE SYRUP 15 MG/1 ML UDSYR PO PRN (18:01)
[2017-07-19] MEDS: ALBUTEROL 60 PUFFS/8 GM MDI IH SCH ×2 (18:50→22:12)
--- NOTE | 2017-07-19 18:53 | GHP ---
[f rep st] HISTORY AND PHYSICAL POST ADMISSION PHYSICIAN EVALUATION AND REHABILITATION TREATMENT PLAN DATE OF ADMISSION: 07/19/2017 DATE OF EVALUATION: 07/19/2017. TIME OF EVALUATION: 1720. REFERRING FACILITY: [facility]. REFERRING PHYSICIAN: Mark Dudley MD IMPAIRMENT GROUP: 3.1. DATE OF ONSET: 07/13/2017. CONSULTING PHYSICIANS: There were none. REHABILITATION DIAGNOSIS: Multiple sclerosis with weakness following sepsis. ETIOLOGIC DIAGNOSIS: Multiple sclerosis. HISTORY OF PRESENT ILLNESS: This patient was admitted to [facility] on 07/13/2017 with fever of 104 and profound weakness. He had been diagnosed with a urinary tract infection on 07/07/2017, and treated with amoxicillin with improvement in. He had 1 dose and then became febrile. He also had a recent hospitalization with hypoxia and likely bronchitis. He was considered septic, though cultures were negative and chest x -ray was not definitive for pneumonia. However, he did have the fever and an elevated white blood cell count of 16.88. He was treated with Zosyn and then transitioned to amoxicillin. Repeat urinalysis was negative. He felt a lot better, though was weak and deconditioned. Prior to discharge, he developed mouth swelling which he thought was similar to previous reaction to Bactrim. He was treated with Benadryl and Pepcid for this and his symptoms resolved. Amoxicillin was discontinued. He was maintained on a De Paz catheter during his stay. He reports at baseline he is able to self-catheterize and he does it whenever he has the sensation of a full bladder, and he feels that he is ready to proceed with self- catheterization. STUDIES AND LABS IN HOSPITAL: Leukocytosis resolved and otherwise CBC on 2017 was overall within normal limits. Coagulation studies were normal. Venous blood lactic acid was not elevated, at 1.2. Renal function and electrolytes were within normal limits. Procalcitonin was 0.24, which was on the borderline of being consistent with sepsis. Urinalysis was normal. Chest x -ray showed an elevated right hemidiaphragm, but otherwise was not consistent with pneumonia. ACTIVE COMORBIDITIES: He currently has no active tier 1, tier 2, or tier 3 comorbidities. He recently had septicemia, which is tier 3, but this has resolved. PAST MEDICAL HISTORY: 1. Multiple sclerosis with neurogenic bladder, lower extremity weakness, and spasticity. 2. Shingles. 3. Urinary tract infections. 4. Infection of left testicle in the year 1999. 5. Lyme disease. PAST SURGICAL HISTORY: He has had a laparoscopic hernia repair in 1998. He has had an ablation for supraventricular tachycardia. He has had a stem cell transplant for multiple sclerosis. PRE-HOSPITAL MEDICATIONS: 1. Amantadine 100 mg p.o. t.i.d. 2. Baclofen 30 mg p.o. q.i.d. 3. Modafinil 200 mg daily and 100 mg at noon each day. 4. Oxybutynin 10 mg p.o. daily. 5. Tizanidine 2 mg p.o. daily at noon and 4 mg p.o. q.h.s. 6. Acyclovir 400 mg p.o. b.i.d. 7. Albuterol 1-2 puffs q.4 hours. 8. Eszopiclone 3 mg p.o. q.h.s. ADMISSION MEDICATIONS: 1. Acetaminophen 650 mg p.o. q.4 hours p.r.n. 2. Acyclovir 400 mg p.o. b.i.d. 3. Albuterol 1-2 puffs q.4 hours. 4. Amantadine 100 mg p.o. t.i.d. 5. Baclofen 30 mg p.o. q.i.d. 6. Famotidine 20 mg p.o. b.i.d. 7. Diphenhydramine 25 mg p.o. q.h.s. p.r.n. 8. Eszopiclone 3 mg p.o. q.h.s. p.r.n. 9. Ketoconazole 2% to facial rash daily. 10. Modafinil 200 mg p.o. daily and 100 mg p.o. daily at noon. 11. Oxybutynin 10 mg p.o. daily. 12. Polyethylene glycol 17 g p.o. daily p.r.n. 13. Senna/docusate 1 tab p.o. b.i.d. p.r.n. 14. Tizanidine 4 mg p.o. daily at noon and 8 mg p.o. q.h.s. ALLERGIES: He has an allergy to sulfonamide antibiotics. PSYCHOSOCIAL HISTORY: He is . He lives with his . They have no children. 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 He and his take care of his 4-year-old grand nephew. FAMILY HISTORY: Noncontributory. REVIEW OF SYSTEMS: He reports he has regained considerable strength in his arms , but his legs remain quite weak. He has spasticity of the legs. He is stronger on the right side than the left side. He is not in pain. He has no cough or dyspnea. His mouth feels dry. He is ready to resume self catheterization. He has no constipation, nausea, vomiting, or diarrhea. He denies any difficulty with swallowing or coughing after eating or drinking. Otherwise, a 10-point review of systems is negative. PHYSICAL EXAMINATION: VITAL SIGNS: Vitals are not yet available in the chart. This morning in the hospital his blood pressure was 136/78. His heart rate was 87. Respiratory rate was 18. Oxygen saturation was 93% on room air. Temperature was 36.6 degrees centigrade. His most recent weight was 75 kg for a body mass index of 22.2. GENERAL: This is a well-nourished, well-developed man, sitting up in his power scooter, cooperative, in no acute distress HEENT: Extraocular movements are intact. Pupils are equal, round, and reactive to light. Mucous membranes are moist. Dentition is in good condition. He has mild erythema over the soft palate and tonsillar pillars. There are no exudates. He has an uncrowded airway, Mallampati class 2. He has a rash over the right upper lip, the right and left corners of the mouth, and over the right chin which is erythematous and slightly flaky. NECK: Supple. HEART: There is a regular rate and rhythm with no murmurs, rubs, or gallops. LUNGS: Clear to auscultation bilaterally. ABDOMEN: Soft, nontender, nondistended with normoactive bowel sounds and no hepatosplenomegaly. EXTREMITIES: There is no cyanosis, clubbing, or edema. NEUROLOGIC: He is alert and oriented x3. Cranial nerves 2-12 are grossly intact. Right upper extremity strength is 5/5. Left upper extremity is 4/5 at the triceps and 5/5 otherwise, but slightly weaker than the right. He has weakness and does not have antigravity strength at the hip flexors. He has increased tone, especially with the left lower extremity with episodes of involuntary extension and inversion of the left foot. Sensation is intact to light touch. He is mildly ataxic bilaterally with the upper extremities on [id number] testing, more so on the left than the right. He has normal rapid alternating movements of the right upper extremity of the right hand, but mildly impaired and slower with the left hand. There is no tremor. CURRENT LEVEL OF FUNCTION PER THE PRE-ADMISSION SCREEN: Regarding diet, feeding , and swallowing, he was on a regular diet. For grooming he required setup with voice cues. Dressing of the lower body required total assistance to don his AFO and socks. Regarding toileting, his transfer required maximal assistance of 2 to stand and pivot. He had a De Paz catheter. Regarding bed mobility, he required minimal assist for rolling. He could go from supine to seated with moderate assist and seated to supine with the head of the bed elevated with moderate assist. Transfers were accomplished with maximum assistance of 2 for sit to stand and using a Cookie Stedy. Sitting balance seated required contact guard to minimal assist and standing required maximal assist. Endurance was fair and therapy staff noted hypertonicity bilaterally of the lower extremities. IMPRESSION: This is a 67-year-old man with multiple sclerosis who has had a stem cell transplant approximately 18 months ago. He was hospitalized on 2017, with a high fever and diagnosed with sepsis, likely urosepsis, but not certain as he had been on antibiotics and his urinalysis was normal. He, however, had had a prior urinalysis that was weakly positive on 07/07/2017, with 10-15 white blood cells, and a urine culture that grew Enterococcus faecalis, which was resistant to tetracyclines, but otherwise susceptible to ampicillin, nitrofurantoin, penicillin, and vancomycin. He was treated with Zosyn initially and then transitioned to amoxicillin. The amoxicillin was discontinued when he developed mouth swelling which was treated with diphenhydramine and famotidine. His fevers and septic symptoms resolved. He was participating in therapy and ready for inpatient rehabilitation. His goal is to complete a rehabilitation stay and then return home with his and supportive services. For a safe discharge, it is expected that he will achieve modified independence for bed mobility, transfers, and dressing. He will be able to independently navigate his wheelchair. He likely will continue to require assist for bathing. He will need to be able to self- catheterize his bladder and otherwise he will need to be medically stable for a safe discharge home. He will have therapy with Physical Therapy, Occupational Therapy, and Speech and Language Pathology for 60-90 minutes each day for each discipline. Speech and Language Pathology will screen his swallowing and may not continue. Otherwise, he will have therapy on 5-7 days of the week and his expected duration of stay is 7-10 days. It is anticipated that upon discharge he will continue home health services with OT and PT, and he may benefit from multiple sclerosis support group. PLAN: 1. Multiple sclerosis with weakness and loss of ability to carry out transfers and activities of daily living status post hospitalization for sepsis. PT and OT to optimize mobility, transfers, and ADLs toward modified independence. 2. Neurogenic bladder. He reports that he is ready to resume self- catheterization. Will discontinue De Paz catheter. I have ordered straight catheter q.6 hours and p.r.n. Will get pre and postvoid bladder volumes by ultrasound to ensure that he is not over filling and at risk for high-pressure urinary tract and complications thereof. 3. Spasticity related to multiple sclerosis. Continue baclofen and tizanidine. 4. Fatigue related to multiple sclerosis. Continue amantadine and modafinil. 5. Episode of facial angioedema was treated in the hospital with diphenhydramine and famotidine. I believe they are on a p.r.n. basis. Caution regarding the famotidine due to interaction with tizanidine: will change to ranitidine 6. Facial rash. Consistent with seborrheic dermatitis. Continue ketoconazole cream as prescribed in the hospital. 7. History of insomnia. Had been treated with Eszopiclone. Zolpidem is on formulary and a very similar medication and will be continued for now. 8. Prophylaxis. He was not walking at home and this has been his long-term condition. It is likely that his DVT risk is similar to the general population , and he will not be placed on DVT prophylaxis. FOLLOWUP: His neurologist is Dr. Devendra Weems at [facility]. His primary care provider is Dr. Kenyetta Garcia. /[id number]/MODL MTDYoni
[2017-07-19] MEDS: AMANTADINE HCL 100 MG CAP PO SCH (22:08)
[2017-07-19] MEDS: OXYBUTYNIN 5 MG EXT REL TAB PO SCH (22:09)
[2017-07-19] MEDS: BACLOFEN 20 MG TAB PO SCH (22:10)
[2017-07-19] MEDS: ACYCLOVIR 400 MG TAB PO SCH (22:10)
[2017-07-19] MEDS: ZOLPIDEM TARTRATE 5 MG TAB PO PRN (22:10)
[2017-07-20] MEDS: ALBUTEROL 60 PUFFS/8 GM MDI IH SCH ×6 (02:00→22:23)
[2017-07-20] MEDS ORDERED: LIDOCAINE 2% JELLY 20 ML (UROJECT) ONE (04:43)
[2017-07-20] MEDS: BACLOFEN 20 MG TAB PO SCH ×4 (05:05→22:16)
[2017-07-20] MEDS: LIDOCAINE 2% JELLY 20 ML (UROJECT) UR PRN ×2 (05:09→07:44)
[2017-07-20] MEDS: ACYCLOVIR 400 MG TAB PO SCH ×2 (07:45→22:17)
[2017-07-20] MEDS: OXYBUTYNIN 5 MG EXT REL TAB PO SCH (07:45)
[2017-07-20] MEDS: AMANTADINE HCL 100 MG CAP PO SCH ×3 (08:29→22:17)
[2017-07-20] MEDS: KETOCONAZOLE 2% 15 GM CREAM TP SCH (08:29)
[2017-07-20] MEDS ORDERED: Herbals/Supplements -Info Only PO SCH (09:00)
[2017-07-20] MEDS: MODAFINIL 100 MG TAB PO SCH ×2 (09:46→12:13)
--- NOTE | 2017-07-20 11:47 | SOAPPROG ---
SOAP Progress Note Assessment/Plan: Assessment: * Multiple sclerosis with weakness and loss of ability to carry out transfers and activities of daily living status post hospitalization for sepsis. PT and OT to optimize mobility, transfers, and ADLs toward modified independence. * Neurogenic bladder. Straight catheter q.6 hours and p.r.n. PVR by bladder scanner has ruled out over filling. Continue self catheterization. * Spasticity related to multiple sclerosis. Continue baclofen and tizanidine. Cooling pad p.r.n. If he feels warm. * Fatigue related to multiple sclerosis. Continue amantadine and modafinil. Endurance work with therapies. * Mouth pain. * No mucosal lesions noted. * Trial of Biotene. * Recent UTI. Per patient's request will initiate cranberry capsules as preventive. * Episode of facial angioedema was treated in the hospital with diphenhydramine and famotidine, ordered PRN. Caution regarding the famotidine due to interaction with tizanidine: changed to ranitidine * Facial rash. Improving. Consistent with seborrheic dermatitis. Continue ketoconazole cream as prescribed in the hospital. * History of insomnia. Had been treated with Eszopiclone. Zolpidem is on formulary and a very similar medication and will be continued for now. * Prophylaxis. He was not walking at home and this has been his long-term condition. It is likely that his DVT risk is similar to the general population , and he will not be placed on DVT prophylaxis. FOLLOWUP: His neurologist is Dr. Devendra Weems at [facility]. His primary care provider is Dr. Kenyetta Garcia. 07/20/17 14:16 Subjective: Complains of mouth pain, specifically has burning sensation on his tongue. Otherwise without complaints. Slept well. Reports that he has increased spasticity of the lower extremities when he gets warm and this happens after eating. Reports that he is better able to self-catheterize when he is sitting up in his scooter transfers from scooter to commode have been limited by the spacing of the bars and he is working with therapy to try a drop-arm commode over the toilet. Objective: Vital Signs Temp Pulse Resp BP Pulse Ox 36.8 C 89 18 118/80 93 07/19/17 20:00 07/19/17 20:00 07/19/17 20:00 07/19/17 20:00 07/19/17 20:00 07/19/17 07/20/17 07/21/17 05:59 05:59 05:59 Intake Total 640 Output Total 1450 Balance -810 Physical Exam - Physical Exam General Appearance: WD/WN, alert, no apparent distress Respiratory: normal breath sounds, No crackles, No rhonchi, No wheezing Cardiac/Chest: regular rate, rhythm, No edema, No diastolic murmur, No systolic murmur Skin: normal color, warm/dry Neuro/Psych: alert, normal mood/affect, oriented x 3, motor weakness (Weakness and spasticity bilateral lower extremities) ICD10 Worksheet Patient Problems: Problems Problem Status Onset Multiple sclerosis exacerbation Acute Pneumonia Acute UTI (urinary tract infection) Acute
[2017-07-20] MEDS: CRANBERRY PO SCH (17:49)
[2017-07-20] MEDS: ASCORBIC ACID PO SCH (17:49)
[2017-07-20] MEDS: BIOTENE DRY MOUTH MOUTHWASH 237 ML BTL MM PRN (17:50)
[2017-07-20] MEDS: ZOLPIDEM TARTRATE 5 MG TAB PO PRN (22:17)
[2017-07-21] MEDS: ALBUTEROL 60 PUFFS/8 GM MDI IH SCH ×6 (03:08→21:45)
[2017-07-21] MEDS: BACLOFEN 20 MG TAB PO SCH ×4 (06:00→21:39)
[2017-07-21] MEDS: CRANBERRY PO SCH ×2 (09:25→21:45)
[2017-07-21] MEDS: ASCORBIC ACID PO SCH ×2 (09:25→21:45)
[2017-07-21] MEDS: BIOTENE DRY MOUTH MOUTHWASH 237 ML BTL MM PRN (09:25)
[2017-07-21] MEDS: OXYBUTYNIN 5 MG EXT REL TAB PO SCH (09:26)
[2017-07-21] MEDS: AMANTADINE HCL 100 MG CAP PO SCH ×3 (09:26→21:46)
[2017-07-21] MEDS: KETOCONAZOLE 2% 15 GM CREAM TP SCH (09:26)
[2017-07-21] MEDS: MODAFINIL 100 MG TAB PO SCH ×2 (09:26→13:02)
[2017-07-21] MEDS: ACYCLOVIR 400 MG TAB PO SCH ×2 (09:26→21:40)
--- NOTE | 2017-07-21 12:00 | PDOREHIP ---
Admission [facility] - Admission - 3 Day Assessment Period Admission Date/Day 1: 07/19/17 Day 2: 07/20/17 Day 3: 07/21/17 - Active Diagnoses Comorbidities and Co-existing Conditions at Admission: 25692. None of the Above - Skin Conditions Unhealed Pressure Ulcer (1 or more/Stage 1 or >)-Admission: 0. No Discharge [facility] - Discharge - 3 Day Assessment Period 2 Days Prior to Anticipated Discharge Date: 07/26/17 1 Day Prior to Anticipated Discharge Date: 07/27/17 Anticipated Discharge Date: 07/28/17
[2017-07-21] MEDS ORDERED: RANITIDINE HCL 150 MG/10 ML UDCUP PO PRN (12:30)
--- NOTE | 2017-07-21 13:13 | SOAPPROG ---
SOAP Progress Note Assessment/Plan: Assessment: * Multiple sclerosis with weakness and loss of ability to carry out transfers and activities of daily living status post hospitalization for sepsis. * Initial functional independence measure is 84. Requires minimal assist of 1 person for bed mobility and transfers. Has decreased trunk control. Does grooming and hygiene seated with modified independence. Upper body dressing is done with setup and standby assist, lower body with moderate assist. Bath transfer requires moderate assist for his legs, he bathes with contact guard assist. He has markedly increased gastrocnemius tone. PT reports that he has had Botox in the past but prefers to not have Botox. He wants to have his AFOs revised. * Continue PT and OT to optimize mobility, transfers, and ADLs toward modified independence. * Neurogenic bladder. Straight catheter q.6 hours and p.r.n. PVR by bladder scanner has ruled out over filling. Continue self catheterization. * Spasticity related to multiple sclerosis. Continue baclofen and tizanidine. Cooling pad p.r.n. If he feels warm. * Fatigue related to multiple sclerosis. Continue amantadine and modafinil. Endurance work with therapies. * Mouth pain. * No mucosal lesions noted. * Trial of Biotene. * Improving * Soft stool; no diarrhea. Likely due to antibiotics. Improving. * Recent UTI. Per patient's request will initiate cranberry capsules as preventive. * Episode of facial angioedema was treated in the hospital with diphenhydramine and famotidine, ordered PRN. Caution regarding the famotidine due to interaction with tizanidine: changed to ranitidine * Facial rash. Improving. Consistent with seborrheic dermatitis. Continue ketoconazole cream as prescribed in the hospital. * History of insomnia. Had been treated with Eszopiclone. Zolpidem is on formulary and a very similar medication and will be continued for now. * Prophylaxis. He was not walking at home and this has been his long-term condition. It is likely that his DVT risk is similar to the general population , and he will not be placed on DVT prophylaxis. Attended staffing, 15 min. Discussed with case management, pharmacist, dietitian, nursing, PT, OT. Plans to discharge home with care of . Plans to continue working. Improving but not yet at baseline level of function from before his illness. Set tentative discharge date for 07/28/2017. FOLLOWUP: His neurologist is Dr. Devendra Weems at [facility]. His primary care provider is Dr. Kenyetta Garcia. 07/21/17 13:09 Subjective: Mouth still feels raw and still having soft stools but both are improving. Feels he is getting stronger with doing his transfers. Somehow suffered a scrape on his left knee overnight. Otherwise without complaints. Objective: Vital Signs Temp Pulse Resp BP Pulse Ox 36.8 C 88 15 140/92 H 95 07/21/17 08:00 07/21/17 08:00 07/21/17 08:00 07/21/17 08:00 07/21/17 08:00 07/20/17 07/21/17 07/22/17 05:59 05:59 05:59 Intake Total 640 1820 240 Output Total 1450 3100 300 Balance -810 -1280 -60 - Time Spent With Patient Time Spent With Patient: Greater than 35 min floor time today, including more than 50% of time in coordination of care during staffing meeting, and counseling patient. Physical Exam - Physical Exam General Appearance: WD/WN, alert, no apparent distress Respiratory: No respiratory distress, No accessory muscle use Cardiac/Chest: No edema Neuro/Psych: alert, normal mood/affect, oriented x 3, motor weakness (Lower extremities with bilateral weakness and spasticity with inverted ankles.) ICD10 Worksheet Patient Problems: Problems Problem Status Onset Multiple sclerosis exacerbation Acute Pneumonia Acute UTI (urinary tract infection) Acute
[2017-07-21] MEDS: ZOLPIDEM TARTRATE 5 MG TAB PO PRN (22:10)
[2017-07-22] MEDS: ALBUTEROL 60 PUFFS/8 GM MDI IH SCH ×6 (03:49→21:15)
[2017-07-22] MEDS: BACLOFEN 20 MG TAB PO SCH ×4 (06:14→21:14)
[2017-07-22] MEDS: AMANTADINE HCL 100 MG CAP PO SCH (09:21)
[2017-07-22] MEDS: ACYCLOVIR 400 MG TAB PO SCH ×2 (09:21→21:15)
[2017-07-22] MEDS: CRANBERRY PO SCH ×2 (09:22→21:16)
[2017-07-22] MEDS: ASCORBIC ACID PO SCH ×2 (09:22→21:16)
[2017-07-22] MEDS: KETOCONAZOLE 2% 15 GM CREAM TP SCH (09:22)
[2017-07-22] MEDS: MODAFINIL 100 MG TAB PO SCH ×2 (09:22→12:46)
[2017-07-22] MEDS: OXYBUTYNIN 5 MG EXT REL TAB PO SCH (09:22)
--- NOTE | 2017-07-22 14:13 | SOAPPROG ---
SOAP Progress Note Assessment/Plan: 67-year-old male with longstanding multiple sclerosis with worsening function following infection Today's update: A total of 60 min was spent on the floor in the care of the patient, the majority of which was spent in counseling and coordination of care regarding spasticity management strategies as well as neurogenic bladder and potential sequelae. In short, he may be a good candidate for target Botox injections particularly in the thigh adductor, may also benefit from injections for equinavarus. Patient is on acyclovir for prophylaxis following his transplant. Changing amantadine dose to morning, late morning, early afternoon. Given information about spasticity management. * Multiple sclerosis with weakness and loss of ability to carry out transfers and activities of daily living status post hospitalization for sepsis. * Initial functional independence measure is 84. Requires minimal assist of 1 person for bed mobility and transfers. Has decreased trunk control. Does grooming and hygiene seated with modified independence. Upper body dressing is done with setup and standby assist, lower body with moderate assist. Bath transfer requires moderate assist for his legs, he bathes with contact guard assist. He has markedly increased gastrocnemius tone. PT reports that he has had Botox in the past but prefers to not have Botox. He wants to have his AFOs revised. * Continue PT and OT to optimize mobility, transfers, and ADLs toward modified independence. * Neurogenic bladder. Straight catheter q.6 hours and p.r.n. PVR by bladder scanner has ruled out over filling. Continue self catheterization. * Spasticity related to multiple sclerosis. Continue baclofen and tizanidine. Cooling pad p.r.n. If he feels warm. * Fatigue related to multiple sclerosis. Continue amantadine and modafinil. Endurance work with therapies. * Mouth pain. * No mucosal lesions noted. * Trial of Biotene. * Improving * Soft stool; no diarrhea. Likely due to antibiotics. Improving. * Recent UTI. Per patient's request will initiate cranberry capsules as preventive. * Episode of facial angioedema was treated in the hospital with diphenhydramine and famotidine, ordered PRN. Caution regarding the famotidine due to interaction with tizanidine: changed to ranitidine * Facial rash. Improving. Consistent with seborrheic dermatitis. Continue ketoconazole cream as prescribed in the hospital. * History of insomnia. Had been treated with Eszopiclone. Zolpidem is on formulary and a very similar medication and will be continued for now. * Prophylaxis. He was not walking at home and this has been his long-term condition. It is likely that his DVT risk is similar to the general population , and he will not be placed on DVT prophylaxis. Attended staffing, 15 min. Discussed with case management, pharmacist, dietitian, nursing, PT, OT. Plans to discharge home with care of . Plans to continue working. Improving but not yet at baseline level of function from before his illness. Set tentative discharge date for 07/28/2017. FOLLOWUP: His neurologist is Dr. Devendra Weems at [facility]. His primary care provider is Dr. Kenyetta Garcia. Patient should have follow-up with physiatry for ongoing spasticity management, as well as potential urodynamics and renal ultrasound. 07/22/17 14:09 Subjective: Chief complaint: Spasticity No acute events overnight. Patient denies any shortness of breath or chest pain , no new numbness, tingling, or weakness. He endorses worsen spasticity in the setting of acute hospitalization. His AFOs no longer fit probably because of that. He is on baclofen and tizanidine, relatively high doses, has tried Botox in the past but his 1 experience was not particularly good. He also clarified that his amantadine should be in the morning, late morning, and early afternoon but not at night. He says he has had recent renal ultrasounds and bladder scans but does not think he has had recent urodynamic studies. Pharmacy clarified that acyclovir is for prophylaxis following his stem cell transplant. He also notes that he has a physiatry, Dr. Barrera, and we will try to get records. Objective: Vital Signs Temp Pulse Resp BP Pulse Ox 37.2 C 104 H 16 138/90 H 95 07/22/17 08:00 07/22/17 08:00 07/22/17 08:00 07/22/17 08:00 07/22/17 08:00 07/21/17 07/22/17 07/23/17 05:59 05:59 05:59 Intake Total 1820 1260 646 Output Total 3100 1750 400 Balance -1280 -490 246 Physical Exam - Physical Exam General Appearance: WD/WN, alert, no apparent distress EENT: No scleral icterus (R), No scleral icterus (L) Respiratory: No respiratory distress, No accessory muscle use Cardiac/Chest: normal peripheral pulses, regular rate, rhythm, No edema Skin: other (kyphotic) Extremities: other (equinovarus, spasticity of 3 on the modified Claudio scale in the bilateral lower limbs. Also including the hip adductor group) Neuro/Psych: alert, normal mood/affect ICD10 Worksheet Patient Problems: Problems Problem Status Onset Multiple sclerosis exacerbation Acute Pneumonia Acute UTI (urinary tract infection) Acute
[2017-07-22] MEDS: BIOTENE DRY MOUTH MOUTHWASH 237 ML BTL MM PRN (23:12)
[2017-07-22] MEDS: ZOLPIDEM TARTRATE 5 MG TAB PO PRN (23:14)
[2017-07-23] MEDS: ALBUTEROL 60 PUFFS/8 GM MDI IH SCH ×6 (02:22→22:37)
[2017-07-23] MEDS: POLYETHYLENE GLYCOL 3350 17 GM PKT PO PRN ×2 (06:42→18:15)
[2017-07-23] MEDS: BACLOFEN 20 MG TAB PO SCH ×4 (06:42→21:31)
[2017-07-23] MEDS: AMANTADINE HCL 100 MG CAP PO SCH ×3 (06:42→16:10)
[2017-07-23] MEDS: MODAFINIL 100 MG TAB PO SCH ×2 (08:11→12:14)
[2017-07-23] MEDS: ACYCLOVIR 400 MG TAB PO SCH ×2 (08:12→21:31)
[2017-07-23] MEDS: OXYBUTYNIN 5 MG EXT REL TAB PO SCH (08:12)
[2017-07-23] MEDS: KETOCONAZOLE 2% 15 GM CREAM TP SCH (08:12)
[2017-07-23] MEDS: CRANBERRY PO SCH ×2 (08:13→22:36)
[2017-07-23] MEDS: ASCORBIC ACID PO SCH ×2 (08:13→22:36)
--- NOTE | 2017-07-23 12:13 | SOAPPROG ---
SOAP Progress Note Assessment/Plan: Assessment: * Multiple sclerosis with weakness and loss of ability to carry out transfers and activities of daily living status post hospitalization for sepsis. * Initial functional independence measure is 84. Requires minimal assist of 1 person for bed mobility and transfers. Has decreased trunk control. Does grooming and hygiene seated with modified independence. Upper body dressing is done with setup and standby assist, lower body with moderate assist. Bath transfer requires moderate assist for his legs, he bathes with contact guard assist. He has markedly increased gastrocnemius tone. PT reports that he has had Botox in the past but prefers to not have Botox. He wants to have his AFOs revised. * Continue PT and OT to optimize mobility, transfers, and ADLs toward modified independence. * Neurogenic bladder. Straight catheter q.6 hours and p.r.n. PVR by bladder scanner has ruled out over filling. Continue self catheterization. * Spasticity related to multiple sclerosis. Continue baclofen and tizanidine. Cooling pad p.r.n.if he feels warm. May benefit from Botox injection especially to the thigh adduct doors and for equinovarus bilaterally. * Fatigue related to multiple sclerosis. Continue amantadine and modafinil. Endurance work with therapies. * Episode of tachycardia, left upper abdominal pain, sweats. Get EKG. * Mouth pain. * No mucosal lesions noted. * Trial of Biotene. * Improving * Soft stool; no diarrhea. Likely due to antibiotics. Improving. * Recent UTI. Per patient's request will initiate cranberry capsules as preventive. * Episode of facial angioedema was treated in the hospital with diphenhydramine and famotidine, ordered PRN. Caution regarding the famotidine due to interaction with tizanidine: changed to ranitidine * Facial rash. Improving. Consistent with seborrheic dermatitis. Continue ketoconazole cream as prescribed in the hospital. * History of insomnia. Had been treated with Eszopiclone. Zolpidem is on formulary and a very similar medication and will be continued for now. * Prophylaxis. He was not walking at home and this has been his long-term condition. It is likely that his DVT risk is similar to the general population , and he will not be placed on DVT prophylaxis. Plans to discharge home with care of . Plans to continue working. Improving but not yet at baseline level of function from before his illness. Set tentative discharge date for 07/28/2017. FOLLOWUP: His neurologist is Dr. Devendra Weems at [facility]. His primary care provider is Dr. Kenyetta Garcia. 07/23/17 12:10 Subjective: Episode of fast heart rate and left upper abdominal pain this morning. He did not get out of bed for breakfast. Eventually improved after a bowel movement. Still feels somewhat constipated. No cough or dyspnea, no chest pain. Objective: Vital Signs Temp Pulse Resp BP Pulse Ox 36.6 C 102 H 16 110/83 H 92 07/23/17 08:00 07/23/17 08:00 07/23/17 08:00 07/23/17 08:00 07/23/17 08:00 07/22/17 07/23/17 07/24/17 05:59 05:59 05:59 Intake Total 1260 1906 550 Output Total 1750 1800 425 Balance -490 106 125 Physical Exam - Physical Exam General Appearance: WD/WN, alert, no apparent distress Respiratory: normal breath sounds, No crackles, No rhonchi, No wheezing Cardiac/Chest: regular rate, rhythm, No diastolic murmur, No systolic murmur Abdomen: normal bowel sounds, non-tender, soft, No distended Skin: normal color, warm/dry Neuro/Psych: alert, normal mood/affect, oriented x 3 ICD10 Worksheet Patient Problems: Problems Problem Status Onset Multiple sclerosis exacerbation Acute Pneumonia Acute UTI (urinary tract infection) Acute
--- NOTE | 2017-07-23 14:05 | CPEKG ---
Heart Rate: 88 RR Interval: 682 P-R Interval: 168 QRSD Interval: 80 QT Interval: 352 QTC Interval: 426 P [place]: 48 QRS [place]: -14 T Wave [place]: 47 EKG Severity - NORMAL ECG - EKG Impression: SINUS RHYTHM Electronically Signed By: Sheila Steen 24-Jul-2017 19:57:07
[2017-07-24] MEDS: ALBUTEROL 60 PUFFS/8 GM MDI IH SCH ×6 (06:18→21:28)
[2017-07-24] MEDS: AMANTADINE HCL 100 MG CAP PO SCH ×3 (06:23→16:03)
[2017-07-24] MEDS: BACLOFEN 20 MG TAB PO SCH ×4 (06:23→21:27)
[2017-07-24] MEDS: ACYCLOVIR 400 MG TAB PO SCH ×2 (09:37→21:27)
[2017-07-24] MEDS: OXYBUTYNIN 5 MG EXT REL TAB PO SCH (09:38)
[2017-07-24] MEDS: ASCORBIC ACID PO SCH ×2 (09:38→21:27)
[2017-07-24] MEDS: CRANBERRY PO SCH ×2 (09:38→21:27)
[2017-07-24] MEDS: MODAFINIL 100 MG TAB PO SCH ×2 (09:38→12:28)
--- NOTE | 2017-07-24 10:22 | SOAPPROG ---
SOAP Progress Note Assessment/Plan: Assessment/Plan: * Multiple sclerosis with weakness and loss of ability to carry out transfers and activities of daily living status post hospitalization for sepsis. * Initial functional independence measure is 84. Requires minimal assist of 1 person for bed mobility and transfers. Has decreased trunk control. Does grooming and hygiene seated with modified independence. Upper body dressing is done with setup and standby assist, lower body with moderate assist. Bath transfer requires moderate assist for his legs, he bathes with contact guard assist. He has markedly increased gastrocnemius tone. PT reports that he has had Botox in the past but prefers to not have Botox. He wants to have his AFOs revised. * Continue PT and OT to optimize mobility, transfers, and ADLs toward modified independence. * Neurogenic bladder. Straight catheter q.6 hours and p.r.n. PVR by bladder scanner has ruled out over filling. Continue self catheterization. * Spasticity related to multiple sclerosis. Continue baclofen and tizanidine. Cooling pad p.r.n.if he feels warm. May benefit from Botox injection especially to the thigh adduct doors and for equinovarus bilaterally. * Fatigue related to multiple sclerosis. Continue amantadine and modafinil. Endurance work with therapies. * Episode of tachycardia, left upper abdominal pain, sweats. Get EKG. * Mouth pain. * No mucosal lesions noted. * Trial of Biotene. * Improving * Soft stool; no diarrhea. Likely due to antibiotics. Improving. * Recent UTI. Per patient's request will initiate cranberry capsules as preventive. * Episode of facial angioedema was treated in the hospital with diphenhydramine and famotidine, ordered PRN. Caution regarding the famotidine due to interaction with tizanidine: changed to ranitidine * Facial rash. Improving. Consistent with seborrheic dermatitis. Continue ketoconazole cream as prescribed in the hospital. * History of insomnia. Had been treated with Eszopiclone. Zolpidem is on formulary and a very similar medication and will be continued for now. * Prophylaxis. He was not walking at home and this has been his long-term condition. It is likely that his DVT risk is similar to the general population , and he will not be placed on DVT prophylaxis. Plans to discharge home with care of . Plans to continue working. Improving but not yet at baseline level of function from before his illness. Set tentative discharge date for 07/28/2017. FOLLOWUP: His neurologist is Dr. Devendra Weems at [facility]. His primary care provider is Dr. Kenyetta Garcia. Today's Plan: no new changes - feeling that yesterday's events were abnormal and feels back to baseline today. EKG read out as normal. Continue with current bladder management plan. Slept well and thus will continue current sleeping medications 07/24/17 10:19 Subjective: Feeling well today - ready to continue working with therapy and to continue getting stronger each day. no sweating last night and slept very well. Objective: Vital Signs Temp Pulse Resp BP Pulse Ox 36.6 C 92 18 136/90 H 92 07/24/17 09:35 07/24/17 06:33 07/24/17 06:33 07/24/17 06:33 07/24/17 06:33 07/23/17 07/24/17 07/25/17 05:59 05:59 05:59 Intake Total 1906 1410 500 Output Total 1800 2100 Balance 106 -690 500 Physical Exam - Physical Exam General Appearance: alert, no apparent distress EENT: PERRL/EOMI Respiratory: lungs clear Cardiac/Chest: regular rate, rhythm Abdomen: non-tender, soft Neuro/Psych: alert, normal mood/affect ICD10 Worksheet Patient Problems: Problems Problem Status Onset Multiple sclerosis exacerbation Acute Pneumonia Acute UTI (urinary tract infection) Acute
[2017-07-24] MEDS: KETOCONAZOLE 2% 15 GM CREAM TP SCH (10:37)
[2017-07-25] MEDS: ALBUTEROL 60 PUFFS/8 GM MDI IH SCH ×6 (03:39→20:50)
[2017-07-25] MEDS: AMANTADINE HCL 100 MG CAP PO SCH ×3 (06:16→13:52)
[2017-07-25] MEDS: BACLOFEN 20 MG TAB PO SCH ×4 (06:16→20:47)
[2017-07-25] MEDS: ACYCLOVIR 400 MG TAB PO SCH ×2 (08:52→20:47)
[2017-07-25] MEDS: MODAFINIL 100 MG TAB PO SCH ×2 (08:52→12:11)
[2017-07-25] MEDS: OXYBUTYNIN 5 MG EXT REL TAB PO SCH (08:52)
[2017-07-25] MEDS: ASCORBIC ACID PO SCH ×2 (08:53→20:48)
[2017-07-25] MEDS: CRANBERRY PO SCH ×2 (08:53→20:48)
[2017-07-25] MEDS: KETOCONAZOLE 2% 15 GM CREAM TP SCH (08:53)
--- NOTE | 2017-07-25 10:45 | SOAPPROG ---
SOAP Progress Note Assessment/Plan: Assessment/Plan: * Multiple sclerosis with weakness and loss of ability to carry out transfers and activities of daily living status post hospitalization for sepsis. * Initial functional independence measure is 84. Requires minimal assist of 1 person for bed mobility and transfers. Has decreased trunk control. Does grooming and hygiene seated with modified independence. Upper body dressing is done with setup and standby assist, lower body with moderate assist. Bath transfer requires moderate assist for his legs, he bathes with contact guard assist. He has markedly increased gastrocnemius tone. PT reports that he has had Botox in the past but prefers to not have Botox. He wants to have his AFOs revised. * Continue PT and OT to optimize mobility, transfers, and ADLs toward modified independence. * Neurogenic bladder. Straight catheter q.6 hours and p.r.n. PVR by bladder scanner has ruled out over filling. Continue self catheterization. * Spasticity related to multiple sclerosis. Continue baclofen and tizanidine. Cooling pad p.r.n.if he feels warm. May benefit from Botox injection especially to the thigh adductors and for equinovarus bilaterally. * Fatigue related to multiple sclerosis. Continue amantadine and modafinil. Endurance work with therapies. * Episode of tachycardia, left upper abdominal pain, sweats. Get EKG. * Mouth pain. * No mucosal lesions noted. * Trial of Biotene. * Improving * Soft stool; no diarrhea. Likely due to antibiotics. Improving. * Recent UTI. Per patient's request will initiate cranberry capsules as preventive. * Episode of facial angioedema was treated in the hospital with diphenhydramine and famotidine, ordered PRN. Caution regarding the famotidine due to interaction with tizanidine: changed to ranitidine * Facial rash. Improving. Consistent with seborrheic dermatitis. Continue ketoconazole cream as prescribed in the hospital. * History of insomnia. Had been treated with Eszopiclone. Zolpidem is on formulary and a very similar medication and will be continued for now. * Prophylaxis. He was not walking at home and this has been his long-term condition. It is likely that his DVT risk is similar to the general population , and he will not be placed on DVT prophylaxis. Plans to discharge home with care of . Plans to continue working. Improving but not yet at baseline level of function from before his illness. Set tentative discharge date for 07/28/2017. FOLLOWUP: His neurologist is Dr. Devendra Weems at [facility]. His primary care provider is Dr. Kenyetta Garcia. Today's Plan: Another good night of sleep - responding well to the medications. Has his braces that are being adjusted for his LE and should be back tomorrow. 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 Needs focal attention to BLE spasticity -has some contracture formation -goal would be to decrease skin breakdown 07/25/17 10:42 Subjective: Doing well today - felt like slept even better last night. Did have large volume voids overnight which is unusual for him but no associated burning or other discomfort. No subjective fevers nor chills. 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 ) Neuro/Psych: alert, normal mood/affect, oriented x 3 ICD10 Worksheet Patient Problems: Problems Problem Status Onset Multiple sclerosis exacerbation Acute Pneumonia Acute UTI (urinary tract infection) Acute
[2017-07-26] MEDS: ALBUTEROL 60 PUFFS/8 GM MDI IH SCH ×6 (04:43→21:26)
[2017-07-26] MEDS: AMANTADINE HCL 100 MG CAP PO SCH ×3 (07:08→14:51)
[2017-07-26] MEDS: BACLOFEN 20 MG TAB PO SCH ×4 (07:08→21:22)
[2017-07-26] MEDS: ACYCLOVIR 400 MG TAB PO SCH ×2 (08:48→21:24)
[2017-07-26] MEDS: MODAFINIL 100 MG TAB PO SCH ×2 (08:48→12:08)
[2017-07-26] MEDS: CRANBERRY PO SCH ×2 (08:49→21:24)
[2017-07-26] MEDS: ASCORBIC ACID PO SCH ×2 (08:49→21:24)
[2017-07-26] MEDS: OXYBUTYNIN 5 MG EXT REL TAB PO SCH (08:49)
[2017-07-26] MEDS: KETOCONAZOLE 2% 15 GM CREAM TP SCH (10:18)
[2017-07-26] MEDS: POLYETHYLENE GLYCOL 3350 17 GM PKT PO PRN (14:51)
--- NOTE | 2017-07-26 17:29 | SOAPPROG ---
SOAP Progress Note Assessment/Plan: Assessment: * Multiple sclerosis with weakness and loss of ability to carry out transfers and activities of daily living status post hospitalization for sepsis. * Initial functional independence measure is 84. Requires minimal assist of 1 person for bed mobility and transfers. Has decreased trunk control. Does grooming and hygiene seated with modified independence. Upper body dressing is done with setup and standby assist, lower body with moderate assist. Bath transfer requires moderate assist for his legs, he bathes with contact guard assist. He has markedly increased gastrocnemius tone. PT reports that he has had Botox in the past but prefers to not have Botox. * Orthotics has been consulted and revision of AFOs are pending. * Continue PT and OT to optimize mobility, transfers, and ADLs toward modified independence. * Neurogenic bladder. Straight catheter q.6 hours and p.r.n. PVR by bladder scanner has ruled out over filling. Continue self catheterization. * Spasticity related to multiple sclerosis. Continue baclofen and tizanidine. Cooling pad p.r.n.if he feels warm. May benefit from Botox injection especially to the thigh adduct doors and for equinovarus bilaterally. * Fatigue related to multiple sclerosis. Continue amantadine and modafinil. Endurance work with therapies. * Episode of tachycardia, left upper abdominal pain, sweats. Normal EKG and no subsequent symptoms. * Mouth pain. * No mucosal lesions noted. * Trial of Biotene. * Improving * Soft stool; no diarrhea. Likely due to antibiotics. Improving. * Recent UTI. Per patient's request will initiate cranberry capsules as preventive. * Episode of facial angioedema was treated in the hospital with diphenhydramine and famotidine, ordered PRN. Caution regarding the famotidine due to interaction with tizanidine: changed to ranitidine * Facial rash. Improving. Consistent with seborrheic dermatitis. Continue ketoconazole cream as prescribed in the hospital. * History of insomnia. Had been treated with Eszopiclone. Zolpidem is on formulary and a very similar medication and will be continued for now. * Prophylaxis. He was not walking at home and this has been his long-term condition. It is likely that his DVT risk is similar to the general population , and he will not be placed on DVT prophylaxis. Plans to discharge home with care of . Plans to continue working. Improving but not yet at baseline level of function from before his illness. Set tentative discharge date for 07/28/2017. FOLLOWUP: His neurologist is Dr. Devendra Weems at [facility]. His primary care provider is Dr. Kenyetta Garcia. 07/26/17 17:27 Subjective: Has fatigue from physical therapy session earlier today. Otherwise without complaints. Not in pain, feeling stronger, no cough or dyspnea, no fevers or chills. Bowels are moving. Objective: Vital Signs Temp Pulse Resp BP Pulse Ox 36.6 C 92 16 136/92 H 92 07/26/17 07:29 07/26/17 07:29 07/26/17 07:29 07/26/17 07:29 07/26/17 07:29 07/25/17 07/26/17 07/27/17 05:59 05:59 05:59 Intake Total 1600 1790 1700 Output Total 3050 1950 1000 Balance -1450 -160 700 Physical Exam - Physical Exam General Appearance: WD/WN, alert, no apparent distress Respiratory: No respiratory distress, No accessory muscle use Skin: normal color, warm/dry Neuro/Psych: alert, normal mood/affect, abnormal cerebellar tests, motor weakness (Bilateral lower extremity) ICD10 Worksheet Patient Problems: Problems Problem Status Onset Multiple sclerosis exacerbation Acute Pneumonia Acute UTI (urinary tract infection) Acute
[2017-07-27] MEDS: ALBUTEROL 60 PUFFS/8 GM MDI IH SCH ×6 (01:24→21:47)
[2017-07-27] MEDS: BACLOFEN 20 MG TAB PO SCH ×4 (06:13→21:46)
[2017-07-27] MEDS: AMANTADINE HCL 100 MG CAP PO SCH ×3 (06:13→15:27)
[2017-07-27] MEDS: MODAFINIL 100 MG TAB PO SCH ×2 (08:16→11:59)
[2017-07-27] MEDS: ACYCLOVIR 400 MG TAB PO SCH ×2 (08:16→21:47)
[2017-07-27] MEDS: OXYBUTYNIN 5 MG EXT REL TAB PO SCH (08:16)
[2017-07-27] MEDS: KETOCONAZOLE 2% 15 GM CREAM TP SCH (08:19)
[2017-07-27] MEDS: ASCORBIC ACID PO SCH ×2 (08:20→21:47)
[2017-07-27] MEDS: BIOTENE DRY MOUTH MOUTHWASH 237 ML BTL MM PRN (08:20)
[2017-07-27] MEDS: CRANBERRY PO SCH ×2 (08:20→21:47)
--- NOTE | 2017-07-27 10:16 | PDOREHIP ---
Admission [facility] - Admission - 3 Day Assessment Period Admission Date/Day 1: 07/19/17 Day 2: 07/20/17 Day 3: 07/21/17 Discharge [facility] - Discharge - 3 Day Assessment Period 2 Days Prior to Anticipated Discharge Date: 07/26/17 1 Day Prior to Anticipated Discharge Date: 07/27/17 Anticipated Discharge Date: 07/28/17 - Discharge Skin Conditions Unhealed Pressure Ulcer (1 or more/Stage 1 or >)-Discharge: 0. No
--- NOTE | 2017-07-27 11:05 | SOAPPROG ---
SOAP Progress Note Assessment/Plan: 67-year-old male with longstanding multiple sclerosis with worsening function following infection Today's update: A total of 40 min was spent on the floor in the care of the patient, the majority of which was spent counseling coordination of care regarding discharge planning. Patient has had a cough for less than 24 hr, no concern for pneumonia at this point, however low threshold for x-ray of chest if he develops symptoms of infection. No aspiration event. Patient requested a possible urinalysis and urine culture before discharge, counseled him that 1 was not indicated unless he was experiencing symptoms. He expressed understanding. * Multiple sclerosis with weakness and loss of ability to carry out transfers and activities of daily living status post hospitalization for sepsis. * Initial functional independence measure is 84. Requires minimal assist of 1 person for bed mobility and transfers. Has decreased trunk control. Does grooming and hygiene seated with modified independence. Upper body dressing is done with setup and standby assist, lower body with moderate assist. Bath transfer requires moderate assist for his legs, he bathes with contact guard assist. He has markedly increased gastrocnemius tone. PT reports that he has had Botox in the past but prefers to not have Botox. * Orthotics has been consulted and revision of AFOs are pending. * Continue PT and OT to optimize mobility, transfers, and ADLs toward modified independence. * Neurogenic bladder. Straight catheter q.6 hours and p.r.n. PVR by bladder scanner has ruled out over filling. Continue self catheterization. * Spasticity related to multiple sclerosis. Continue baclofen and tizanidine. Cooling pad p.r.n.if he feels warm. May benefit from Botox injection especially to the thigh adductors and for equinovarus bilaterally. * Fatigue related to multiple sclerosis. Continue amantadine and modafinil. Endurance work with therapies. * Episode of tachycardia, left upper abdominal pain, sweats. Normal EKG and no subsequent symptoms. * Mouth pain. * No mucosal lesions noted. * Trial of Biotene. * Improving * Soft stool; no diarrhea. Likely due to antibiotics. Improving. * Recent UTI. Per patient's request, cranberry capsules as preventive. * Episode of facial angioedema was treated in the hospital with diphenhydramine and famotidine, ordered PRN. Caution regarding the famotidine due to interaction with tizanidine: changed to ranitidine * Facial rash. Improving. Consistent with seborrheic dermatitis. Continue ketoconazole cream as prescribed in the hospital. * History of insomnia. Had been treated with Eszopiclone. Zolpidem is on formulary and a very similar medication and will be continued for now. * Prophylaxis. He was not walking at home and this has been his long-term condition. It is likely that his DVT risk is similar to the general population , and he will not be placed on DVT prophylaxis. Plans to discharge home with care of . Plans to continue working. Improving but not yet at baseline level of function from before his illness. Set tentative discharge date for 07/28/2017. FOLLOWUP: His neurologist is Dr. Devendra Weems at [facility]. His primary care provider is Dr. Kenyetta Garcia. He will also follow up with his rehab doctor, Dr. Barrera. 07/22/17 14:09 07/27/17 10:55 Subjective: Chief complaint: Discharge planning, cough No acute events overnight. Patient does endorse less than 24 hr of a dry cough without any aspiration event. He denies any shortness of breath or chest pain, no new numbness, tingling, or weakness, no fevers, chills, night sweats. He is breathing fine without any concerns. He has a history of pneumonia that was about 2 years ago for unclear reason but he thought it was related to some workplace contamination. Working on discharge planning today, patient requested a urine culture as he is between infection, counseled him that a urine culture as effective only when there are symptoms annual planning treatment. No concerns about his AFOs. Plans to follow in outpatient clinic for rehabilitation, as well as following with his prior providers. Objective: Vital Signs Temp Pulse Resp BP Pulse Ox 36.6 C 95 17 114/82 H 97 07/27/17 08:00 07/27/17 08:00 07/27/17 08:00 07/27/17 08:00 07/27/17 08:00 07/26/17 07/27/17 07/28/17 05:59 05:59 05:59 Intake Total 1790 2500 Output Total 1950 2600 Balance -160 -100 Physical Exam - Physical Exam General Appearance: WD/WN, alert, no apparent distress EENT: No scleral icterus (R), No scleral icterus (L) Respiratory: chest non-tender, lungs clear, normal breath sounds, No respiratory distress, No accessory muscle use, No decreased breath sounds, No rales, No rhonchi, No wheezing, No pain on movement Cardiac/Chest: normal peripheral pulses, regular rate, rhythm, No edema, No diastolic murmur, No systolic murmur Skin: normal color, warm/dry, No cyanosis, No diaphoresis Extremities: No pedal edema, No swelling Neuro/Psych: alert, normal mood/affect, oriented x 3 ICD10 Worksheet Patient Problems: Problems Problem Status Onset Multiple sclerosis exacerbation Acute Pneumonia Acute UTI (urinary tract infection) Acute
[2017-07-28] MEDS: ALBUTEROL 60 PUFFS/8 GM MDI IH SCH ×5 (04:11→13:02)
[2017-07-28] MEDS: AMANTADINE HCL 100 MG CAP PO SCH ×2 (06:04→11:40)
[2017-07-28] MEDS: BACLOFEN 20 MG TAB PO SCH ×2 (06:04→11:40)
[2017-07-28 08:39] VITALS: BP 134/86
[2017-07-28] MEDS: CRANBERRY PO SCH (09:06)
[2017-07-28] MEDS: ASCORBIC ACID PO SCH (09:06)
[2017-07-28] MEDS: MODAFINIL 100 MG TAB PO SCH ×2 (09:06→11:40)
[2017-07-28] MEDS: ACYCLOVIR 400 MG TAB PO SCH (09:06)
[2017-07-28] MEDS: OXYBUTYNIN 5 MG EXT REL TAB PO SCH (09:06)
[2017-07-28] MEDS: KETOCONAZOLE 2% 15 GM CREAM TP SCH (10:21)
--- NOTE | 2017-07-28 16:07 | GDS ---
[f rep st] DISCHARGE SUMMARY CONSULTATIONS: There were none. PROCEDURES: There were none. COMPLICATIONS: There were none. ADMITTING DIAGNOSIS: Multiple sclerosis with weakness and debility following sepsis. DISCHARGE DIAGNOSES: 1. Multiple sclerosis with weakness and debility following sepsis. 2. Neurogenic bladder. 3. Spasticity. HISTORY AND HOSPITAL COURSE: This patient was admitted from [facility] where he had been treated for sepsis, likely urinary tract in origin. He was maintained on a De Paz catheter during his stay, but at baseline, he had been able to self-catheterize. He was medically stabilized and remained with increased debility and weakness and so was discharged to inpatient rehabilitation. He did very well in rehabilitation. His initial functional independence measure on 07/21/2017 was 84, which is consistent with assisted living level of function. He required minimal assist of 1 person for bed mobility and transfers. He had decreased trunk control. He was able to do grooming and hygiene seated with modified independence. He could do upper body dressing with setup and standby assist. Lower body dressing required moderate assist. Bath transfer required moderate assist for his legs. He was able to bathe with contact guard assist. He had markedly increased gastrocnemius tone. Regarding neurogenic bladder, he rapidly regained his ability to self-catheterize. He had a postvoid residual by bladder scanning which ruled out over filling. Regarding spasticity, he was continued on baclofen and tizanidine, and he was advised to consider botulinum toxin injections after his discharge. He developed a cough on the day before discharge. He had no signs or symptoms consistent with pneumonia, and there were other patients on the floor who had a similar cough, which was a likely viral syndrome. He achieved modified independence with a sliding board for bed mobility and transfers. He was able to line server the standing frame for 4 minutes. He was independent with mobility on his scooter. He was independent for grooming and hygiene. He had achieved independent to modified independent with a device status for grooming, dressing and bathing. He continued to require minimal assistance for a lateral scoot to a tub transfer bench, and he required assist for his right leg to get his right lower extremity over the tub. DISCHARGE PLAN: Condition upon discharge is good. DISCHARGE DISPOSITION: He is returning home with his . DIET: Regular. FUNCTIONAL STATUS: As described above. MEDICATIONS UPON DISCHARGE: 1. Acetaminophen 650 mg p.o. q.4 hours p.r.n. 2. Acyclovir 400 mg p.o. twice daily. 3. Albuterol 1-2 puffs p.o. q.4 hours p.r.n. 4. Amantadine 100 mg p.o. t.i.d. 5. Baclofen 30 mg p.o. q.i.d. 6. Diphenhydramine 25 mg p.o. q.6 hours p.r.n. 7. Eszopiclone 3 mg p.o. q.h.s. p.r.n. 8. Biotene mouthwash p.r.n. 9. Ketoconazole cream to facial rash daily p.r.n. 10. Lidocaine jelly p.r.n. for self catheterization. 11. Modafinil 200 mg p.o. q.a.m., 100 mg p.o. at noon. 12. Oxybutynin XL 10 mg p.o. daily. 13. Polyethylene glycol 17 g p.o. daily p.r.n. 14. Ranitidine 150 mg p.o. b.i.d. p.r.n. 15. Senna 1 2 tablets p.o. b.i.d. daily. 16. Tizanidine 4 mg daily at noon and 8 mg p.o. q.h.s. ISSUES TO BE ADDRESSED AT FOLLOWUP: 1. Functional status: He will continue outpatient physical therapy. 2. Management of multiple sclerosis: He will follow up with his neurologist Dr. Devendra Ellsworth at [facility]. Copy requested to: Andi Ellsworth MD [facility] /[id number]/MODL MTDD
== END 2017-07-28 13:42 | disposition home or self-care (01) | DRG 60 ==
LOC: BREH 16:38
PROVIDERS: ADMIT Internal Medicine; ATTEND Internal Medicine
DX: G35 Multiple sclerosis (principal); N31.9 Neuromuscular dysfunction of bladder, unspecified; G47.00 Insomnia, unspecified; L21.9 Seborrheic dermatitis, unspecified; Z86.19 Personal history of other infectious and parasitic diseases
CPT/HCPCS: 92610-GN; 97110-GO; 97110-GP; 97112-GP; 97161-GP; 97167-GO; 97530-GO; 97530-GP; 97535-GO; 97760-GP

== ENCOUNTER → 2017-08-04 | Outpatient (CLI) | payer OTHER ==
[~2017-08-04] MED LIST: GADOBUTROL 10 ML VIAL IVP ONE
== END ==
LOC: FIMAGING 18:44
PROVIDERS: ATTEND Specialist
DX: G35 Multiple sclerosis (principal); M50.323 Other cervical disc degeneration at C6-C7 level; M53.82 Other specified dorsopathies, cervical region; M48.02 Spinal stenosis, cervical region; M47.813 Spondylosis without myelopathy or radiculopathy, cervicothoracic region; M51.34 Other intervertebral disc degeneration, thoracic region
CPT/HCPCS: A9585

== ENCOUNTER → 2017-08-10 | Outpatient (CLI) | payer OTHER | LOC: FIMAGING 10:31 | PROVIDERS: ATTEND Specialist | DX: G35 Multiple sclerosis (principal) | CPT/HCPCS: A9585 ==

== ENCOUNTER 2017-10-11 14:11 | Outpatient (CLI) | payer OTHER ==
[2017-10-11] MEDS ORDERED: MIDAZOLAM 2 MG/2 ML VIAL IVP PRN (14:28)
[2017-10-11] MEDS ORDERED: FLUMAZENIL 0.5 MG/5 ML MDV IVP PRN (14:28)
[2017-10-11] MEDS ORDERED: MEPERIDINE 25 MG/ML SYR IVP PRN (14:28)
[2017-10-11] MEDS ORDERED: NALOXONE HCL 0.4 MG/ML INJ IVP PRN (14:28)
[2017-10-11] MEDS ORDERED: fentaNYL 100 MCG/2 ML INJ IVP PRN (14:28)
[2017-10-11] MEDS ORDERED: NS 1,000 ML IV SCH (14:30)
--- NOTE | 2017-10-11 15:09 | PDPROPOC ---
Sedation Plan of Care Sedation Plan of Care: mental status noted, patient educated of risks, benefits , alternatives, patient can tolerate sedation ASA Classification: ASA 1 Planned drugs: fentanyl, midazolam Mallampati Score: Class 2 Mallampati Reference Image: Patient passed 3-3-2 rule?: Yes
--- NOTE | 2017-10-11 15:09 | PDGENHP ---
History & Physical Chief Complaint: leg movement History of Present Illness: need mri cervical spine, difficulty stopping leg movement Cardiorespiratory Assessment: regular heart rate, lungs clear
[2017-10-11] MEDS ORDERED: GADOBUTROL 10 ML VIAL IVP ONE (15:34)
[2017-10-11 18:31] VITALS: BP 146/96
== END 2017-10-11 18:10 | disposition home or self-care (01) ==
LOC: FIMAGING 14:11
PROVIDERS: ATTEND Specialist
DX: G35 Multiple sclerosis (principal); M48.8X2 Other specified spondylopathies, cervical region; M50.31 Other cervical disc degeneration, high cervical region
CPT/HCPCS: 82565-PO; A9585; J2250; J2310; J3010

== ENCOUNTER → 2018-04-06 | Outpatient (CLI) | payer OTHER | LOC: FIMAGING 15:11 | PROVIDERS: ATTEND Specialist | DX: G35 Multiple sclerosis (principal); M48.061 Spinal stenosis, lumbar region without neurogenic claudication | CPT/HCPCS: 82565-PO; A9585 ==